=== PATIENT | female | born 1930 | race Caucasian/White ===

== ENCOUNTER → 2016-08-23 | Day surgery (SDC) | payer OTHER ==
[~2016-08-23] VITALS: Ht 167.6 cm; Wt 72.6 kg
[~2016-08-23] MED LIST: ALENDRONATE SOD70 M2 PO; ALLOPURINOL300 M1 PO; LIPITOR80 M1 PO; OMEPRAZOLE40 M1 PO; VITAMIN C500 M6 PO
--- NOTE | 2016-08-23 08:11 | Operative Report ---
Operative/Inv Procedure Report Surgery Date: 08/23/16 Name of Procedure: Cataract extraction lens implantation right eye Pre-Operative Diagnosis: Age-related cataract right eye 20/80 vision Post-Operative Diagnosis: Same Estimated Blood Loss: none Surgeon/Scratch Polisher: ALEXA MURILLO,KENY Oquendo Anesthesia: local monitored anesthesi Complications: None Operative/Procedure Note Note: The patient was brought to the operating room standard monitoring equipment was attached the patient was prepped and draped in the usual fashion for intraocular surgery. A lid speculum was placed to retract the lids. The case was begun by making 2 partial-thickness corneal relaxing incisions at 13. A temporal incision with a 2.4 mm keratome. The eye was stabilized with a Stephens ring during this incision. 1 mL of non-preserved lidocaine was introduced into the anterior chamber to provide anesthesia. The anterior chamber was then filled and deepened with viscoelastic. A curvilinear capsulorrhexis was achieved using a 30-gauge needle and is a cystotome and capsulorrhexis was finished using a Utrata forceps. A second or paracentesis incision was made temporally with a 1 mm MVR blade. The lens was then hydrodissected with balanced salt solution and found to be rotatable. The lens was emulsified using phacoemulsification and a modified four-quadrant cracking technique. The residual cortical material was removed using automated irrigation and aspiration and as much of the anterior capsular rim was cleaned as well as possible. The posterior capsule was cleaned first with the automated machine on a low setting and then manually with a Tin squeegee. The capsular bag was deepened with viscoelastic. The lens a Akreos AO 60 19.5 Diopter placed into the bag under direct visualization and rotated so that the haptics were at 12 and 6:00. Viscoelastic was then removed from the eye by flushing it out and then by automated irrigation and aspiration. The eye was pressurized to a normal tone. 1/10 of a cc of vancomycin solution was introduced into the anterior chamber to provide antibiotic prophylaxis. The wounds were sealed by hydrating the stroma adjacent to them and the eye was left at a proper tone after the wounds were checked and found not to be leaking. The lid speculum was removed from the orbit. Antibiotic and steroid drops were placed on the eye and then the eye was shielded. Monitoring equipment was removed from the patient and the patient was removed from the operative suite to the holding area. The patient tolerated the procedure well and will be seen in the office tomorrow.
== END ==
LOC: STS 04:38
DX: H25.9 Unspecified age-related cataract (principal); I10 Essential (primary) hypertension; M19.90 Unspecified osteoarthritis, unspecified site
CPT/HCPCS: J2250; V2632

== ENCOUNTER → 2016-10-05 | Day surgery (SDC) | payer OTHER ==
[~2016-10-05] VITALS: Ht 167.6 cm; Wt 72.6 kg
--- NOTE | 2016-10-05 08:04 | Operative Report ---
Operative/Inv Procedure Report Surgery Date: 10/05/16 Name of Procedure: Cataract extraction lens implantation left eye Pre-Operative Diagnosis: Age-related cataract left eye 20/70 vision Post-Operative Diagnosis: Same Estimated Blood Loss: none Surgeon/Farm Technician: ALEXA MURILLO,KENY Oquendo Anesthesia: local monitored anesthesi Complications: None Operative/Procedure Note Note: The patient was brought to the operating room standard monitoring equipment was attached the patient was prepped and draped in the usual fashion for intraocular surgery. A lid speculum was placed to retract the lids. The case was begun by making 2 partial-thickness corneal relaxing incisions at 170. A temporal incision with a 2.4 mm keratome. The eye was stabilized with a Stephens ring during this incision. 1 mL of non-preserved lidocaine was introduced into the anterior chamber to provide anesthesia. The anterior chamber was then filled and deepened with viscoelastic. A curvilinear capsulorrhexis was achieved using a 30-gauge needle and is a cystotome and capsulorrhexis was finished using a Utrata forceps. A second or paracentesis incision was made temporally with a 1 mm MVR blade. The lens was then hydrodissected with balanced salt solution and found to be rotatable. The lens was emulsified using phacoemulsification and a modified four-quadrant cracking technique. The residual cortical material was removed using automated irrigation and aspiration and as much of the anterior capsular rim was cleaned as well as possible. The posterior capsule was cleaned first with the automated machine on a low setting and then manually with a Tin squeegee. The capsular bag was deepened with viscoelastic. The lens a Akreos AO60 20.5 Diopter placed into the bag under direct visualization and rotated so that the haptics were at 12 and 6:00. Viscoelastic was then removed from the eye by flushing it out and then by automated irrigation and aspiration. The eye was pressurized to a normal tone. 1/10 of a cc of vancomycin solution was introduced into the anterior chamber to provide antibiotic prophylaxis. The wounds were sealed by hydrating the stroma adjacent to them and the eye was left at a proper tone after the wounds were checked and found not to be leaking. The lid speculum was removed from the orbit. Antibiotic and steroid drops were placed on the eye and then the eye was shielded. Monitoring equipment was removed from the patient and the patient was removed from the operative suite to the holding area. The patient tolerated the procedure well and will be seen in the office tomorrow.
== END ==
LOC: STS 02:37
DX: H25.9 Unspecified age-related cataract (principal); I10 Essential (primary) hypertension; K21.9 Gastro-esophageal reflux disease without esophagitis
CPT/HCPCS: J2250; V2632

== ENCOUNTER 2018-03-13 17:35 | Inpatient (IN) | payer OTHER ==
[~2018-03-13] VITALS: Ht 167.6 cm; Wt 59.9 kg
[~2018-03-13 17:35] MED LIST changes: +FISH OIL 1,0001 EACH PO; +FLAX OIL1000 M1 PO; +LISINOPRIL10 M1 PO; +OMEPRAZOLE20 M2 PO; -OMEPRAZOLE40 M1 PO; +OS-CAL 500+D31 EAC1 PO; +VITAMIN B-121000 MC3 PO; +VITAMIN D1000 UNIT PO
--- NOTE | 2018-03-13 18:30 | ED THROAT/DENTAL COMPLAINT ---
History of Present Illness General Chief Complaint: General Adult Stated Complaint: THROAT SWELLING Source: patient Exam Limitations: clinical condition, poor historian Vital Signs & Intake/Output Vital Signs & Intake/Output Vital Signs Date Time Temp Pulse Resp B/P B/P Pulse O2 O2 Flow FiO2 Mean Ox Delivery Rate 03/14 1414 97.0 79 18 100/58 95 Room Air 03/14 0620 97.8 71 18 136/60 97 Room Air 03/14 0042 97.9 78 18 154/68 97 Room Air 03/14 0002 98.3 84 18 175/75 96 Room Air 03/13 2129 98.2 92 18 151/70 100 Room Air 03/13 1933 97.9 76 18 164/70 100 Room Air ED Intake and Output 03/14 0000 03/13 1200 Intake Total Output Total Balance Patient 139 lb Weight Weight Reported by Patient Measurement Method Allergies Coded Allergies: Penicillins (Intermediate, UNKNOWN 03/22/17) Reconcile Medications Alendronate Sodium 70 MG TABLET 1 TAB PO QSUN OSTEOPOROSIS (Reported) in the morning, at least 30 minutes before the first food, beverage, or medication of the day Allopurinol 300 MG TABLET 1 TAB PO DAILY UNKNOWN (Reported) Ascorbate Calcium (Vitamin C) 500 MG TABLET 1 TAB PO DAILY SUPPLEMENT ( Reported) Atorvastatin Calcium (Lipitor) 80 MG TABLET 1 TAB PO DAILY CHOLESTEROL ( Reported) Calcium Carbonate/Vitamin D3 (Os-Lavelle 500+D3 Caplet) 500 MG-200 TABLET 1 TAB PO DAILY SUPLLEMENT (Reported) Cholecalciferol (Vitamin D3) (Vitamin D) 1,000 UNIT TABLET 1 TAB PO DAILY VITAMIN SUPPORT (Reported) Cyanocobalamin (Vitamin B-12) 1,000 MCG TABLET 1 TAB PO DAILY VITAMIN SUPPORT (Reported) Flaxseed Oil (Flax Oil) 1,000 MG CAPSULE 1 CAP PO DAILY SUPPLEMENT (Reported) Lisinopril 10 MG TABLET 1 TAB PO DAILY HEART (Reported) Cheney-3 Fatty Acids/Fish Oil (Fish Oil 1,000 MG Capsule) 340 MG-1,000 MG CAPSULE 1 CAP PO DAILY SUPPLEMENT (Reported) Omeprazole 20 MG CAPSULE.DR 1 CAP PO DAILY ACID REFLUX (Reported) Triage Note: PT BIBA FROM HOME WITH C/O "THROAT SWELLING". PT REPORTS THAT SHE HAS HAD DISCOMFORT AND SWELLING TO HER THROAT SINCE THE LATER PART OF JANUARY. 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 PT'S NEIGHBOR SPOKE WITH MD TODAY OVER CONCERN FOR PT'S INABILITY TO SWALLOW WITH INABILITY TO DRINK OR EAT SINCE MONDAY. PT ARRIVES AWAKE, A&O x4. DENIES PAIN WITH ONLY COMPLAINT OF FEELING DRY R/T POOR PO INTAKE. HYPERTENSIVE ON ARRIVAL WITH OTHER VSS. PT STATES SHE WAS UNABLE TO SWALLOW MEDICATION THS AM. Triage Nurses Notes Reviewed? yes Onset: Gradual Duration: getting worse Timing: recent history Injury Environment: home Severity: severe Severity Numbers: 7 HPI: Patient is an 87-year-old female with a past medical history of hypertension hyperlipidemia GERD who presents emergency room with concerns of difficulty swallowing and decreased amounts of by mouth intake for an unknown period of time, history is limited due to patient being a poor historian in which patient is presents to the emergency room with a neighbor I PlaceD a phone call to her primary care doctor Dr. PIRES who states that for approximately 6 weeks patient has developed gradually worsening dysphonia in which initially there was concerns of a mechanical fall and trauma to the vocal cords were patient has followed up with ENT Dr. Umaña which evaluation of the larynx was unremarkable, PT did receive bilateral carotid ultrasound showing approximately 70% of obstruction with no complete obstruction concerns he advised patient to be given aspirin which she declines he also states that he may house call visit a few days ago and which he was going to order a CAT scan of the head and provide patient with a prescription of Mucinex spray Patient states that she is unable tolerate anything by mouth for the past few days and is concerned of dehydration Patient denies any fever chills headache blurred vision sore throat year pain chest pain arm pain jaw pain with swelling tongue swelling or extremity weakness (Ole Garrido) Past History Medical History Any Pertinent Medical History? see below for history Cardiovascular: hypertension, hyperlipidemia Gastrointestinal: GERD Musculoskeletal: gout, osteoporosis Surgical History Surgical History: cataract removal Psychosocial History What is your primary language Telugu Family History Hx Contributory? No (Ole Garrido) Review of Systems Review of Systems Constitutional: Reports: no symptoms. EENTM: Reports: see HPI. Respiratory: Reports: no symptoms. Cardiovascular: Reports: no symptoms. GI: Reports: no symptoms. Genitourinary: Reports: no symptoms. Musculoskeletal: Reports: no symptoms. Skin: Reports: no symptoms. Neurological/Psychological: Reports: no symptoms. Hematologic/Endocrine: Reports: no symptoms. Immunologic/Allergic: Reports: no symptoms. All Other Systems: Reviewed and Negative (Ole Garrido) Physical Exam Physical Exam General Appearance: no apparent distress, alert, comfortable Head: atraumatic Eyes: Bilateral: normal appearance, PERRL, EOMI. Ears: Bilateral: Tympanic normal. Nose: normal inspection Mouth/Throat: normal mouth inspection, pharynx normal Neck: normal inspection, supple Cardiovascular/Respiratory: no respiratory distress Neurologic/Psych: awake, alert, oriented x 3, engineer internship II-XII nml as tested Skin: intact, normal color, warm/dry Comments: Gag reflex intact patient was able to swallow by mouth 3 ounces of water with no emesis however patient has significant dysphagia Bilateral upper extremity normal inspection nontender patient has difficulty lifting her right arm (she states that she has old injuries to the right shoulder with no new mechanism or trauma) Bilateral lower extremity patient able to perform straight leg raise Bilateral upper extremity and lower extremity dermatomes intact radial pulse +2 Core Measures ACS in differential dx? No Sepsis Present: No Sepsis Focused Exam Completed? No (Ole Garrido) Progress Differential Diagnosis: carious tooth, epiglottitis, Ludwigs angina, meningitis, odontogenic abscess, alejandro-tonsillar abscess, pharyngeal for. body, stomatitis/ gingivitis, strep pharyngitis, tooth fracture Plan of Care: Orders Procedure Date/time Status CBC WITHOUT DIFFERENTIAL 03/15 06 Active BASIC ELECTROLYTES PLUS BUN&CR 03/15 06 Active Regular Diet 03/14 L Active Nothing by Mouth 03/14 B Complete Change service to 03/14 0723 Active HEPATIC FUNCTION PANEL 03/14 06 Complete BASIC ELECTROLYTES PLUS BUN&CR 03/14 06 Complete Pathway - chart 03/14 0442 Active Code Status 03/14 0148 Active Vital Signs 03/14 010 Active Teach/Educate 03/14 010 Active Pain Treatment and Response 03/14 010 Active Nutritional Intake, Monitor 03/14 010 Active Isolation 03/14 0100 Active Intake & Output 03/14 010 Active Patient Care Conference 03/14 010 Active Activity/Ambulation 03/14 010 Active PT Evaluate & Treat 03/14 0021 Active Pathway - chart 03/14 0021 Active House Staff 03/14 0021 Active NUTRITIONAL CONSULT 03/14 0021 Active SWALLOW EVALUATION 03/14 UNK Active SWALLOW GOAL STATUS 03/14 UNK Complete SWALLOW CURRENT STATUS 03/14 UNK Complete Evaluation, Swallowing 03/14 UNK Complete Theraputic Activities 15 Min 03/14 UNK Complete MOBILITY GOAL STATUS 03/14 UNK Complete MOBILITY CURRENT STATUS 03/14 UNK Complete PT EVAL LOW COMPLEX 20 MIN 03/14 UNK Complete Occupational Tx Eval & Treat 03/14 UNK Active VTE Mechanical Prophylaxis 03/14 UNK Active Activity/Ambulation 03/14 UNK Active Intake & Output 03/13 2356 Active Patient Data 03/13 2247 Active OXYGEN SETUP (GEN) 03/13 2228 Active Saline Lock 03/[address] in observation 03/13 2228 Active Vital Signs 03/13 2228 Active Activity/Ambulation 03/13 2228 Complete Code Status 03/13 2228 Complete Current Medications Sig/Laisha Start time Last Medication Dose Stop Time Status Admin Enoxaparin Sodium 40 MG DAILY 03/14 0900 AC 03/14 (Lovenox) 0829 Acetaminophen 650 MG Q6 03/14 0600 CAN (Tylenol) Acetaminophen 1,000 MG Q6P PRN 03/14 0445 AC (Ofirmev) N/A 1 UNIT (No Carrier) Laboratory Tests 03/14/18 0821: Anion Gap 12, Estimated GFR > 60, BUN/Creatinine Ratio 18.3, Total Bilirubin 0.5 , Direct Bilirubin 0.2, AST 97 H, ALT 44, Alkaline Phosphatase 59, Total Protein 6.2 L, Albumin 3.5 03/13/18 2214: Lactic Acid Cancelled Differential diagnoses include CVA TIA Patient on initial presentation is resting currently NIH stroke scale is low Symptoms have been presenting for over a month that are gradually worsening Patient had considerable difficulty swallowing 3 ounces of water in which there is no acute neurovascular compromise noted from the CT angiogram Patient was unsafe to return home due to her clinical presentation Diagnostic Imaging: Viewed by Me: CT Scan. Radiology Impression: SEE COMMENTS Comments: PATIENT: YUE VALERIO PRESENT AGE: 87 PATIENT ACCOUNT NO: [id number] : 29 LOCATION: [facility] ORDERING PHYSICIAN: Ole HOWARD SERVICE DATE: 03/13/18-2215 EXAM TYPE: RAD - XRY-CHEST XRAY, TWO VIEWS EXAMINATION: XR CHEST CLINICAL INFORMATION: Inability to swallow. Choking. COMPARISON: None TECHNIQUE: 2 views of the chest were obtained. FINDINGS: Lungs are clear. No pulmonary vascular congestion. There is no pleural effusion. The heart size is normal. The cardiac and mediastinal contours are normal. There are calcifications of the thoracic aorta. There are multilevel degenerative changes of dorsal spine. Old healed fracture of the proximal shaft of the left humerus partially visualized. Bowel loops are present under the right left diaphragm. No free air under the diaphragms. IMPRESSION: No acute abnormality of chest. DICTATED BY: Jose Daniel Avila MD DATE/TIME DICTATED:03/13/18 / PATIENT: YUE VALERIO PRESENT AGE: 87 PATIENT ACCOUNT NO: [id number] : 29 LOCATION: [facility] ORDERING PHYSICIAN: Ole HOWARD SERVICE DATE: 03/13/18 EXAM TYPE: CAT - CT HEAD ANGIOGRAM; CT NECK ANGIOGRAM EXAMINATION: CT ANGIOGRAM NECK WITH CONTRAST CT ANGIOGRAM BRAIN WITH CONTRAST CLINICAL INFORMATION: Dysarthria COMPARISON: Carotid ultrasound from 02/26/2018. CT neck from 02/07/2018. TECHNIQUE: Test bolus sequences followed by intravenous administration 90 mL of Optiray 320. Helical imaging was performed in the axial plane from the thoracic inlet to the skull vertex. Delayed postcontrast imaging of the head was also performed. The data was processed at the ct mri technologist workstation for generation of MIP sequences. Angled MIPs and volume rendered reformatted images were also generated at an offline 3D workstation. Stenoses are assessed in accordance with NASCET criteria unless otherwise indicated. DLP: 1934 mGy-cm FINDINGS: Nonvascular: There is no hemorrhage, edema, mass effect, hydrocephalus, extra-axial collection, or shift of the normally midline structures. No evolving territorial infarct. There is moderate generalized prominence of the ventricles, sulci, and extra-axial CSF spaces. There is mild hypoattenuation in the bihemispheric white matter compatible with chronic microangiopathy. No abnormal intracranial enhancement is visualized. There are dependent changes in the lung apices as well as nodular biapical pleuroparenchymal scarring. No upper mediastinal adenopathy is convincingly evident. There is a 4 mm right thyroid nodule. The imaged pharyngeal and laryngeal contours appear grossly unremarkable. No abnormalities of the oral cavity are definitively visualized. No evidence of sialadenitis involving the parotid or submandibular glands. No cervical adenopathy. There have been bilateral ocular lens extractions. No acute osseous abnormalities. There are arachnoid granulations in the occipital bone incidentally. The imaged paranasal sinuses, nasal cavity, mastoid air cells and middle ear cavities are clear. Multilevel cervical spondylosis worst at C4-C5 and C5-C6. No acute osseous abnormalities are evident. Vascular: The aortic arch is unfolded and calcified but normal in caliber. There is conventional branching of the great vessels without significant ostial stenosis. There is calcification at the origin of the left subclavian artery which is not hemodynamically significant. The proximal subclavian arteries both appear free of hemodynamically significant stenosis. The origin of the right common carotid artery is unremarkable. The origin of both vertebral arteries appear unremarkable. The right common carotid artery appears normal in caliber. There is calcified and noncalcified atheroma at the right carotid bulb. There is calcified and noncalcified atheroma involving the origin and proximal right internal carotid artery, narrowing the lumen down to 1.9 mm, distally 3.9 mm, for an approximately 51% stenosis. There is mild poststenotic dilatation. More distally within the mid to distal cervical internal carotid artery there is a beaded appearance with mild luminal narrowing. The left common carotid artery appears fairly normal in caliber. There is calcified and noncalcified atheroma at the left carotid bulb with mild luminal narrowing. There is calcified and noncalcified atheroma extending into the origin and proximal left common carotid artery with luminal narrowing down to approximately 1.9 mm, distally the vessel measures approximately 3.4 mm, for a 40-45 % stenosis. There is a slightly beaded appearance of the mid to distal cervical internal carotid artery. The dominant right vertebral artery appears unremarkable in its cervical course. The diminutive left vertebral artery appears unremarkable in its cervical course. The distal right internal carotid artery demonstrates tortuosity and calcification in its cavernous segment. No high-grade stenosis. The right middle cerebral artery appears normal in caliber and arborization. The right anterior cerebral artery appears normal in caliber and arborization. The anterior communicating artery appears unremarkable. The distal left internal carotid artery is tortuous and calcified in its cavernous segment. There is some venous contamination which limits assessment but there is suspected to be a medially projecting 3 mm saccular outpouching at the cavernous level (series 3 image [id number]). There is no high-grade stenosis. The left MCA demonstrates mild irregularity without high-grade stenosis or occlusion visualized. The intradural vertebral arteries, basilar artery, and vertebrobasilar branches appear unremarkable. No aneurysm or vascular malformation. The major dural venous sinuses, deep and cortical veins opacify normally. There are some scattered tortuous venous collaterals seen within the posterior soft tissues of the neck, which may be due to compression of the jugular veins between the lateral masses of C1 and the styloid processes, also previously noted. IMPRESSION: 1. No acute intracranial abnormality. No abnormal intracranial enhancement. 2. An approximately 50-55% stenosis of the proximal right internal carotid artery due to calcified and noncalcified atheroma with mild poststenotic dilatation. An approximately 40-45% stenosis involving the proximal left internal carotid artery due to calcified and noncalcified atheroma. 3. There is an irregular beaded appearance of the mid to distal cervical internal carotid arteries bilaterally suggesting fibromuscular dysplasia. 4. 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 No high-grade stenosis or occlusion in the intracranial arteries. 5. Fairly high-grade narrowing of the internal jugular veins between the lateral masses of C1 and styloid processes with collateral venous circulation within the upper neck. DICTATED BY: Diane Mao MD DATE/TIME DICTATED:03/13/182137 CNC MILL PROGRAMMER:MARY DATE/TIME TRANSCRIBED:03/13/18 / (Ole Garrido) Departure Departure Disposition: STILL A PATIENT Condition: Stable Clinical Impression Primary Impression: Dysphagia Secondary Impressions: Dysphonia, Inability to swallow Referrals: Jamey Pires MD (PCP/Family) Departure Forms: Customer Survey General Discharge Information Observation Note Spoke With: Tisha Alatorre MD Physician Advisor Notified: MALI MCKENZIE MD Place Patient In: Non-ED OBS Care Area Rationale for Observation: My rational for observation is as follows [patient requires frequent vital sign checks, ENT consultation speech therapy consultation and vascular consultation and which currently patient is unsafe to be discharged due to her significant dysphagia]. (Ole Garrido) PA/SHOCHET Co-Sign Statement Statement: ED Attending supervision documentation- x I saw and evaluated the patient. I have also reviewed all the pertinent lab results and diagnostic results. I agree with the findings and the plan of care as documented in the PA's/SHOCHET's documentation. Dysphagia, dysphonia, unable to eat or drink [] I have reviewed the ED Record and agree with the PA's/SHOCHET's documentation. [] Additions or exceptions (if any) to the PAs/SHOCHET's note and plan are summarized below: [] (Dinora MURILLO,Fausto)
[2018-03-13 19:31] LABS: ABSOLUTE BASOPHIL COUNT 0.1 /CUMM (0.0-0.2); ABSOLUTE EOSINOPHIL COUNT 0 /CUMM (0.0-0.7); ABSOLUTE GRANULOCYTE CT 3.2 /CUMM (1.4-6.5); ABSOLUTE LYMPH COUNT 1.4 /CUMM (1.2-3.4); ABSOLUTE MONOCYTE COUNT 0.4 /CUMM (0.10-0.60); BASOPHIL % 1.1 % (0.0-2.0); EOSINOPHIL % 0.6 % (0-5); GRANULOCYTE % 62.7 % (42.2-75.2); MEAN CORPUSCULAR HGB 31.3 PG (27.0-31.0); MEAN CORPUSCULAR HGB CONC 32.8 G/DL (33.0-37.0); MEAN CORPUSCULAR VOLUME 95.5 FL (81.0-99.0); PLATELET COUNT 198 /CUMM (130-400); RED BLOOD CELL CT 3.77 /CUMM (4.20-5.40); WHITE BLOOD CELL COUNT 5.1 /CUMM (4.8-10.8)
[2018-03-13 19:45] LABS: PT 11.7 SEC (9.4-12.5)
--- NOTE | 2018-03-13 22:01 | CT SCAN REPORT ---
EXAMINATION: CT ANGIOGRAM NECK WITH CONTRAST CT ANGIOGRAM BRAIN WITH CONTRAST CLINICAL INFORMATION: Dysarthria COMPARISON: Carotid ultrasound from 02/26/2018. CT neck from 02/07/2018. TECHNIQUE: Test bolus sequences followed by intravenous administration 90 mL of Optiray 320. Helical imaging was performed in the axial plane from the thoracic inlet to the skull vertex. Delayed postcontrast imaging of the head was also performed. The data was processed at the echocardiography technologist workstation for generation of MIP sequences. Angled MIPs and volume rendered reformatted images were also generated at an offline 3D workstation. Stenoses are assessed in accordance with NASCET criteria unless otherwise indicated. DLP: 1934 mGy-cm FINDINGS: Nonvascular: There is no hemorrhage, edema, mass effect, hydrocephalus, extra-axial collection, or shift of the normally midline structures. No evolving territorial infarct. There is moderate generalized prominence of the ventricles, sulci, and extra-axial CSF spaces. There is mild hypoattenuation in the bihemispheric white matter compatible with chronic microangiopathy. No abnormal intracranial enhancement is visualized. There are dependent changes in the lung apices as well as nodular biapical pleuroparenchymal scarring. No upper mediastinal adenopathy is convincingly evident. There is a 4 mm right thyroid nodule. The imaged pharyngeal and laryngeal contours appear grossly unremarkable. No abnormalities of the oral cavity are definitively visualized. No evidence of sialadenitis involving the parotid or submandibular glands. No cervical adenopathy. There have been bilateral ocular lens extractions. No acute osseous abnormalities. There are arachnoid granulations in the occipital bone incidentally. The imaged paranasal sinuses, nasal cavity, mastoid air cells and middle ear cavities are clear. Multilevel cervical spondylosis worst at C4-C5 and C5-C6. No acute osseous abnormalities are evident. Vascular: The aortic arch is unfolded and calcified but normal in caliber. There is conventional branching of the great vessels without significant ostial stenosis. There is calcification at the origin of the left subclavian artery which is not hemodynamically significant. The proximal subclavian arteries both appear free of hemodynamically significant stenosis. The origin of the right common carotid artery is unremarkable. The origin of both vertebral arteries appear unremarkable. The right common carotid artery appears normal in caliber. There is calcified and noncalcified atheroma at the right carotid bulb. There is calcified and noncalcified atheroma involving the origin and proximal right internal carotid artery, narrowing the lumen down to 1.9 mm, distally 3.9 mm, for an approximately 51% stenosis. There is mild poststenotic dilatation. More distally within the mid to distal cervical internal carotid artery there is a beaded appearance with mild luminal narrowing. The left common carotid artery appears fairly normal in caliber. There is calcified and noncalcified atheroma at the left carotid bulb with mild luminal narrowing. There is calcified and noncalcified atheroma extending into the origin and proximal left common carotid artery with luminal narrowing down to approximately 1.9 mm, distally the vessel measures approximately 3.4 mm, for a 40-45 % stenosis. There is a slightly beaded appearance of the mid to distal cervical internal carotid artery. The dominant right vertebral artery appears unremarkable in its cervical course. The diminutive left vertebral artery appears unremarkable in its cervical course. The distal right internal carotid artery demonstrates tortuosity and calcification in its cavernous segment. No high-grade stenosis. The right middle cerebral artery appears normal in caliber and arborization. The right anterior cerebral artery appears normal in caliber and arborization. The anterior communicating artery appears unremarkable. The distal left internal carotid artery is tortuous and calcified in its cavernous segment. There is some venous contamination which limits assessment but there is suspected to be a medially projecting 3 mm saccular outpouching at the cavernous level (series 3 image 418). There is no high-grade stenosis. The left MCA demonstrates mild irregularity without high-grade stenosis or occlusion visualized. The intradural vertebral arteries, basilar artery, and vertebrobasilar branches appear unremarkable. No aneurysm or vascular malformation. The major dural venous sinuses, deep and cortical veins opacify normally. There are some scattered tortuous venous collaterals seen within the posterior soft tissues of the neck, which may be due to compression of the jugular veins between the lateral masses of C1 and the styloid processes, also previously noted. IMPRESSION: 1. No acute intracranial abnormality. No abnormal intracranial enhancement. 2. An approximately 50-55% stenosis of the proximal right internal carotid artery due to calcified and noncalcified atheroma with mild poststenotic dilatation. An approximately 40-45% stenosis involving the proximal left internal carotid artery due to calcified and noncalcified atheroma. 3. There is an irregular beaded appearance of the mid to distal cervical internal carotid arteries bilaterally suggesting fibromuscular dysplasia. 4. 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 No high-grade stenosis or occlusion in the intracranial arteries. 5. Fairly high-grade narrowing of the internal jugular veins between the lateral masses of C1 and styloid processes with collateral venous circulation within the upper neck.
--- NOTE | 2018-03-13 22:42 | History & Physical ---
Janeen Ac 03/13/18 2241: General Information and HPI MD Statement: I have seen and personally examined YUE VALERIO and documented this H&P. The patient is a 87 year old F who presented with a patient stated chief complaint of []. Source of Information: patient Exam Limitations: patient's age, physical impairment History of Present Illness: 87 yo woman with PMH of hypertension, hyperlipidemia and gout was brought in to the ED by her neighbour as she had not been able to eat or drink anything for the past 2 days. The patient was alone at the time of interview and was making a significant effort to talk. According to her, her problems started at the end of last month when she apparently had a stroke. She developed dysphonia and hoarseness of her voice along with weakness in her legs. Dr. Martin, her PCP was contacted by the PA in the ED and according to him the dysphonia started 6 weeks ago after the patient had a fall. He referred her to , an ENT who did a laryngoscopy on her which showed no acute changes. The patient is tearful during the interview and reports that she has not been able to eat or drink anything for the past 2 days and has been choking if she tries to do so. She lives alone, admits that she has not been eating well and has had multiple falls in the past mainly because of her legs giving way. She denies chest pain, SOB, nausea, vomiting, dizziness, vision problems, any bowel or bladder trouble. Allergies/Medications Allergies: Coded Allergies: Penicillins (Intermediate, UNKNOWN 03/22/17) Home Med list Alendronate Sodium 70 MG TABLET 1 TAB PO QSUN OSTEOPOROSIS (Reported) in the morning, at least 30 minutes before the first food, beverage, or medication of the day Allopurinol 300 MG TABLET 1 TAB PO DAILY UNKNOWN (Reported) Ascorbate Calcium (Vitamin C) 500 MG TABLET 1 TAB PO DAILY SUPPLEMENT ( Reported) Atorvastatin Calcium (Lipitor) 80 MG TABLET 1 TAB PO DAILY CHOLESTEROL ( Reported) Calcium Carbonate/Vitamin D3 (Os-[place] 500+D3 Caplet) 500 MG-200 TABLET 1 TAB PO DAILY SUPLLEMENT (Reported) Cholecalciferol (Vitamin D3) (Vitamin D) 1,000 UNIT TABLET 1 TAB PO DAILY VITAMIN SUPPORT (Reported) Cyanocobalamin (Vitamin B-12) 1,000 MCG TABLET 1 TAB PO DAILY VITAMIN SUPPORT (Reported) Flaxseed Oil (Flax Oil) 1,000 MG CAPSULE 1 CAP PO DAILY SUPPLEMENT (Reported) Lisinopril 10 MG TABLET 1 TAB PO DAILY HEART (Reported) [place]-3 Fatty Acids/Fish Oil (Fish Oil 1,000 MG Capsule) 340 MG-1,000 MG CAPSULE 1 CAP PO DAILY SUPPLEMENT (Reported) Omeprazole 20 MG CAPSULE. 1 CAP PO DAILY ACID REFLUX (Reported) Observation Initial Note - I have personally examined YUE VALERIO on 03/14/18 at 0538. The disposition of YUE VALERIO is uncertain at this time and before a determination can be made, she requires a period of observation for the following reasons: 1. dysphagia 2. failure to thrive Past History Travel History Traveled to [place] past 21 day No Medical History Neurological: CVA Cardiovascular: hypertension, hyperlipidemia Gastrointestinal: GERD Musculoskeletal: gout, osteoporosis Surgical History Surgical History: cataract removal Past Family/Social History Psychosocial History Primary Language: [place] ETOH Use: denies use Review of Systems Review of Systems Constitutional: Denies: chills, diaphoresis, fever, malaise, unexplained weight loss. EENTM: Reports: hearing changes. Denies: double vision, visual changes. Cardiovascular: Denies: chest pain, edema, palpitations. Respiratory: Denies: cough, short of breath. GI: Denies: abdominal pain, bloating, constipation, diarrhea, bowel incontinence, nausea. Genitourinary: Reports: urgency. Denies: discharge, dysuria, frequency, hesitation. Musculoskeletal: Reports: joint pain. Skin: Reports: no symptoms. Neurological/Psychological: Reports: weakness. Hematologic/Endocrine: Reports: no symptoms. Exam & Diagnostic Data Last 24 Hrs of Vital Signs/I&O Vital Signs Date Time Temp Pulse Resp B/P B/P Pulse O2 O2 Flow FiO2 Mean Ox Delivery Rate 03/14 0042 97.9 78 18 154/68 97 Room Air 03/14 0002 98.3 84 18 175/75 96 Room Air 03/13 2129 98.2 92 18 151/70 100 Room Air 03/13 1933 97.9 76 18 164/70 100 Room Air 03/13 1757 Room Air 03/13 1742 98.3 98 20 170/80 98 Room Air Intake & Output 03/14 0800 03/14 0000 03/13 1600 Intake Total Output Total 150 Balance -150 Output, Urine 150 Patient 139 lb 139 lb Weight Weight Reported by Patient Measurement Method Physical Exam General Appearance Alert, Oriented X3, Cooperative, Mild Distress Skin bruises on her arms and elbows apparently form her recurent falls Skin Temp/Moisture Exam: Warm/Dry Sepsis Skin Exam (color): Normal for Ethnicity HEENT Atraumatic, PERRLA Neck Supple Cardiovascular Regular Rate, Normal S2, systolic murmur heard in the aortic area Lungs breath sounds diminished B/L upper chest Abdomen Normal Bowel Sounds, Soft, No Tenderness Neurological Strength 4/5 B/L Extremities Normal Pulses Assessment/Plan Assessment: This is an 87 yo Female who was brought in by her neighbour with complaints of dysphagia and choking on both solids and liquids for the past 2 days. She gives a history of having suffered a CVA last month but it could not been verified. On exmaination, the patient was tearful and took a lot of effort to verbalise her concerns. She nearly aspirated when she was given water to drink in the ED. CT scan head and neck did not show any acute intracranial abnormaslity. It does show internal carotid artery narrowing alongwith evidence of fibromuscular dysphagia. 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 Plan: 1. Place under observation on the GM floors. 2. Swallow evaluation 3. NPO to avoid chokig/ aspiration 4. Speech therapy and PT 5. VAscular consult 6. ENT consult DVT prophylaxis: Lovenox Code status: DNR/DNI As Ranked By This Provider Problem List: 1. Dysphonia 2. Dysphagia 3. Inability to swallow 4. Frequent falls 5. Choking Core Measures/Misc (05/07) Acute Coronary Syndrome ACS Diagnosis: No Congestive Heart Failure Congestive Heart Failure Diagnosis No Cerebrovascular Accident CVA/TIA Diagnosis: No VTE (View Protocol) VTE Risk Factors Age>40 No Mechanical VTE Prophylaxis d/t N/A MechProphylax Ordered No VTE Pharm Prophylaxis d/t NA PharmProphylax ordered Sepsis (View protocol) Sepsis Present: No If YES complete Sepsis Event Note If YES complete Sepsis Event Note Braulio Montalvo 03/14/18 0153: Core Measures/Misc (05/07) Sepsis (View protocol) If YES complete Sepsis Event Note If YES complete Sepsis Event Note Resident Review Statement Resident Statement: examined this patient, discussed with risk management internship, agreed with risk management internship Other Findings: 87 woman, from home past medical history significant for osteoporosis, gout, HTN , HLD presenting with dysphagia since the past 6 weeks with dysphonia which has progressed the last 2 days. Per patient she had a fall a month ago and since been having trouble articulating her words and having dysphonia. She was evaluated by her PCP Dr. Martin who thought it was secondary to trauma to her with vocal cords due to her fall and she was evaluated by Dr. Umaña of ENT who performed laryngoscopy that was found to be normal. Apparently a carotid ultrasound was also done by PCP and was reported to have 70% stenosis of 1 of her carotid arteries and he wanted to start her on aspirin however patient declined this. Patient did give us a history that she apparently had a stroke a month ago however her PCP did not mention this to the ED PA and there is no mention of it in EMR. Since the last 2 days she has been unable to have any kind of p.o. intake as she if chokes when she tries liquids or solids and even her pills. She was given water in the ED and nearly aspirated. She also also had multiple falls which she feels is mostly her legs giving way and overall generalized weakness. Denies headache, vision changes, numbness, motor dysfunction, paresthesia, ataxia, chest pain, SOB, diarrhea, dysuria, abdominal pain. Vitals in ED significant for hypertension 154/68. Examination significant for dry mucous membranes, no lateralizing neurological deficits, she is able to move her tongue in all directions. RS significant for bilaterally decreased breath sounds specifically in upper lung area. CVS S1-S2 short systolic murmur. Labs CBC BEP unremarkable, chest x-ray shows old calcification of thoracic aorta. CTA head and neck: IMPRESSION: 1. No acute intracranial abnormality. No abnormal intracranial enhancement. 2. An approximately 50-55% stenosis of the proximal right internal carotid artery due to calcified and noncalcified atheroma with mild poststenotic dilatation. An approximately 40-45% stenosis involving the proximal left internal carotid artery due to calcified and noncalcified atheroma. 3. There is an irregular beaded appearance of the mid to distal cervical internal carotid arteries bilaterally suggesting fibromuscular dysplasia. 4. 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 No high-grade stenosis or occlusion in the intracranial arteries. 5. Fairly high-grade narrowing of the internal jugular veins between the lateral masses of C1 and styloid processes with collateral venous circulation within the upper neck. 1 dysphagia 2 failure to thrive 3. Right and left ICA stenosis Plan Place as observation general medicine, vitals per protocol Keep n.p.o. for swallow/speech evaluation, patient will require modified barium swallow ENT and vascular consults MRI head to assess for stroke PT to evaluate and treat NPO with D5 1/2 NS for maintenance, hold all p.o. meds for now if her blood pressure continues to increase she will need IV as needed As she lives alone with no help and no relatives involved in her care, she will need to be assessed for safe discharge. DVT PPx subcu Lovenox DNR/DNI Tisha Alatorre MD 03/14/18 0223: Core Measures/Misc (05/07) Sepsis (View protocol) If YES complete Sepsis Event Note If YES complete Sepsis Event Note Attending MD Review Statement Attending Statement Attending MD Statement: examined this patient, discuss w/resident/PA/VOCATIONAL CHILDCARE TEACHER, agreed w/resident/PA/VOCATIONAL CHILDCARE TEACHER, reviewed EMR data (avail) Attending Assessment/Plan: 87F PMH HTN, HLD presenting with hoarseness of voice and dysphagia. Patient fell a few weeks ago and since then has had a hoarse voice, thought by Dr. Martin to be traumatic. Saw Dr. Umaña of ENT who performed laryngoscopy that was found to be normal. Patient reports having a stroke about a month ago but this is unclear, and no record of it here. Patient reports worsening of her hoarseness, and today is unable to swallow anything. She was given water in the ED and nearly aspirated. She also reports generalized weakness. She has no other complaints, and denies headache, vision changes, numbness, motor dysfunction, paresthesia, ataxia, chest pain, SOB, diarrhea, dysuria, abdominal pain. Her neurological exam is normal. CTA head and neck were done which show multiple areas of narrowing with evidence of fibromuscular dysplasia. No areas of infarct or bleed were noted. 1. Pharyngeal dysphagia 2. Hoarseness 3. Right and left ICA stenosis Plan - Observation in general medicine - ENT and vascular consults - MRI head - Speech therapy evaluation - D5 1/2 NS for maintenance - NPO - DVT PPx
--- NOTE | 2018-03-13 22:44 | RADIOLOGY REPORT ---
EXAMINATION: XR CHEST CLINICAL INFORMATION: Inability to swallow. Choking. COMPARISON: None TECHNIQUE: 2 views of the chest were obtained. FINDINGS: Lungs are clear. No pulmonary vascular congestion. There is no pleural effusion. The heart size is normal. The cardiac and mediastinal contours are normal. There are calcifications of the thoracic aorta. There are multilevel degenerative changes of dorsal spine. Old healed fracture of the proximal shaft of the left humerus partially visualized. Bowel loops are present under the right left diaphragm. No free air under the diaphragms. IMPRESSION: No acute abnormality of chest.
[2018-03-14 00:42] VITALS: BP 154/68
[2018-03-14 06:20] VITALS: BP 136/60
--- NOTE | 2018-03-14 07:06 | PN- Housestaff ---
Devante Salgado 03/14/18 0706: Subjective Follow-up For: difficulty swallowing and weakness Complaints: unable to swallow, x2 days Subjective: Patient seen and examined at the bedside. Patient was emotionally labile and tearful on interview. Upset that she can no longer feed herself and no longer eat. Asked for physicians help in figuring out what is wrong and solving this problem. Review of Systems Constitutional: Reports: see HPI, weakness. EENTM: Reports: no symptoms. Cardiovascular: Reports: no symptoms. Respiratory: Reports: no symptoms. Gastrointestinal: Reports: see HPI. Genitourinary: Reports: no symptoms. Musculoskeletal: Reports: no symptoms. Skin: Reports: no symptoms. Neurological/Psychological: Reports: no symptoms. Hematologic/Endocrine: Reports: no symptoms. Objective Last 24 Hrs of Vital Signs/I&O Vital Signs Date Time Temp Pulse Resp B/P B/P Pulse O2 O2 Flow FiO2 Mean Ox Delivery Rate 03/14 1414 97.0 79 18 100/58 95 Room Air 03/14 0620 97.8 71 18 136/60 97 Room Air 03/14 0042 97.9 78 18 154/68 97 Room Air 03/14 0002 98.3 84 18 175/75 96 Room Air 03/13 2129 98.2 92 18 151/70 100 Room Air 03/13 1933 97.9 76 18 164/70 100 Room Air 03/13 1757 Room Air 03/13 1742 98.3 98 20 170/80 98 Room Air Intake & Output 03/14 1600 03/14 0800 03/14 0000 Intake Total 780 0 Output Total 700 250 Balance 80 -250 Intake, IV 300 Intake, Oral 480 0 Number 1 1 Bowel Movements Output, Urine 700 250 Patient 139 lb 139 lb 139 lb Weight Weight Reported by Patient Measurement Method Physical Exam General Appearance: Alert, Oriented X3, Cooperative, Severe Distress, hoarse voice Skin: No Rashes, No Breakdown Skin Temp/Moisture Exam: Warm/Dry HEENT: Atraumatic, PERRLA, EOMI Neck: Supple, No JVD, No thryomegaly Lymphatic: Axillary nl, Cervical nl Cardiovascular: Regular Rate, Normal S1, Normal S2, No Murmurs Lungs: Clear to Auscultation, Normal Air Movement Abdomen: Normal Bowel Sounds, Soft, No Tenderness, No Hepatospenomegaly Neurological: Normal Gait, Strength at 5/5 X4 Ext, Normal Tone, Sensation Intact , hoarse voice Extremities: No Clubbing, No Cyanosis, No Edema Vascular: Normal Pulses, Pulses Symmetrical Current Medications: Current Medications Sig/Laisha Start time Last Medication Dose Route Stop Time Status Admin Acetaminophen 650 MG Q6 03/14 0600 CAN PO Acetaminophen 1,000 MG Q6P PRN 03/14 0445 AC N/A 1 UNIT IV Dextrose/Sodium 1,000 ML Q13H 03/14 0330 DC 03/14 Chloride IV 0414 Enoxaparin Sodium 40 MG DAILY 03/14 0900 AC 03/14 SC 0829 Sodium Chloride 1,000 ML .[id number] 03/14 0015 DC 03/14 IV 0137 Last 24 Hrs of Lab/Driss Results Last 24 Hrs of Labs/Mics: Laboratory Tests 03/14/18 0821: Anion Gap 12, Estimated GFR > 60, BUN/Creatinine Ratio 18.3, Total Bilirubin 0.5 , Direct Bilirubin 0.2, AST 97 H, ALT 44, Alkaline Phosphatase 59, Total Protein 6.2 L, Albumin 3.5 03/13/18 2214: Lactic Acid Cancelled 03/13/18 1915: Anion Gap 13, Estimated GFR > 60, BUN/Creatinine Ratio 18.8, Glucose 67, Lactic Acid 1.1, Calcium 9.9, Total Bilirubin 0.9, AST 128 H, ALT 45, Alkaline Phosphatase 52, Total Protein 7.0, Albumin 4.0, Globulin 3.0, Albumin/Globulin Ratio 1.3, PT 11.7, INR 1.07, CBC w Diff NO MAN DIFF REQ, RBC 3.77 L, MCV 95.5, MCH 31.3 H, MCHC 32.8 L, RDW 15.0 H, MPV 10.0, Gran % 62.7, Lymphocytes % 27.9, Monocytes % 7.7, Eosinophils % 0.6, Basophils % 1.1, Absolute Granulocytes 3.2, Absolute Lymphocytes 1.4, Absolute Monocytes 0.4, Absolute Eosinophils 0, Absolute Basophils 0.1 Orders Radiology Findings: Head MRI showed no evidence of acute intracranial pathology Assessment/Plan Assessment: Patient is an 87-year-old female past medical history of hypertension, hyperlipidemia, and gout presents to the ER with difficulty swallowing and weakness. Problem list/plan: Dysphagia speech pathology -MRI showed no evidence of acute stroke or other insult Chronic conditions DVT prophylaxis: Subcu heparin and ALPS Regular diet, pure and nectar consistency Patient is DNR/DNI Problem List: 1. Dysphagia 2. Dysphonia 3. Choking Pain Ratin Pain Location: none Pain Goal: Remain pain free Pain Plan: acetaminophen for pain prn Tomorrow's Labs & Rationales: cbc, bep Malou Deluca 03/14/18 1118: Attending MD Review Statement Attending Statement Attending MD Statement: examined this patient, discuss w/resident/PA/LAMP SHADE JOINER, agreed w/resident/PA/LAMP SHADE JOINER, discussed with family, reviewed EMR data (avail), discussed with nursing, discussed with case mgmt, reviewed images, amended to note Attending Assessment/Plan: 87F PMH HTN, HLD presenting with hoarseness of voice and dysphagia which is acute to subacute onset. Saw Dr. Umaña of ENT who performed laryngoscopy that was found to be normal. Patient reports worsening of her hoarseness, and today is unable to swallow anything. CTA head and neck s/o multiple areas of narrowing with evidence of fibromuscular dysplasia. Vitals stable. no complaints reported. Going for MRI head. 1. Oropharyngeal dysphagia subacute to acute onset r/o CVA 2. Hoarseness 3. Right and left ICA stenosis Plan - Observation in general medicine - F/ U ENT and vascular consults - MRI head F/U - Speech/swallow therapy evaluation - IVF, NPO - DVT PPx
--- NOTE | 2018-03-14 10:46 | RADIOLOGY REPORT ---
EXAMINATION: XR MODIFIED BARIUM SWALLOW CLINICAL INFORMATION: Dysphagia, choking. COMPARISON: None. TECHNIQUE: A modified barium swallow was performed with speech pathologist in attendance. Pur?e, honey thick, nectar thick, thin, and bread consistencies were given to the patient and the swallowing mechanism was observed fluoroscopically with several spot films taken using the last image hold feature. FLUOROSCOPY TIME: 2.33 minutes. FINDINGS: With all consistencies, the oropharyngeal phase of swallowing is disordered with difficulty in posterior bolus propagation. With thin liquids, silent penetration of contrast is seen with no laryngeal or nasopharyngeal aspiration seen. No penetration with the other consistencies is noted. With all consistencies, there is pooling of contrast in the valleculae, which only clears after successive swallows. IMPRESSION: 1. Disordered oral phase of swallowing. 2. Silent penetration of contrast with thin liquids. 3. Pooling of contrast in the valleculae with all consistencies. 4. Speech pathologist assessment issued separately.
--- NOTE | 2018-03-14 11:35 | MRI REPORT ---
EXAMINATION: MR BRAIN WITHOUT CONTRAST CLINICAL INFORMATION: CVA. Dysphagia and dysphonia. COMPARISON: Head CTA 03/13/2018. TECHNIQUE: Multiplanar, multisequence imaging of the brain was performed without intravenous contrast. \H\ \N\FINDINGS: There is no acute infarct, hemorrhage, or mass lesion. There is no extra-axial collection. The ventricles, sulci, and basilar cisterns are normal in size and configuration. There are mild scattered foci of T2 prolongation in the cerebral white matter, a nonspecific finding. There is mild diffuse brain parenchymal volume loss. No evidence of hydrocephalus. The flow voids of the major intracranial arteries appear intact. Bilateral lens replacements are noted. There is mild paranasal sinus mucosal thickening without fluid levels. IMPRESSION: - No acute infarct, mass lesion, intracranial hemorrhage, or evidence of hydrocephalus. - Mild diffuse brain parenchymal volume loss. - Moderate scattered foci of T2 prolongation in the cerebral white matter, a nonspecific finding.
[2018-03-14 14:14] VITALS: BP 100/58
[2018-03-14 22:13] VITALS: BP 98/56
[2018-03-15 06:39] VITALS: BP 118/62
--- NOTE | 2018-03-15 07:07 | PN-Observation ---
Devante Salgado 03/15/18 0706: Observation Note Observation Note _ I have personally examined YUE VALERIO. her disposition is uncertain at this time. Before a determination can be made, she requires continued observation for the following reasons [continued dysphagia and difficulty feeding herself]. Assessment/Plan Medical Assessment: Patient is an 87-year-old female past medical history of hypertension, hyperlipidemia, and gout presents to the ER with difficulty swallowing and weakness. Problem list/plan: Dysphagia speech pathology -MRI showed no evidence of acute stroke or other insult -GI consult placed for consideration of EGD -Will touch base with ENT regarding her outpatient procedures Chronic conditions DVT prophylaxis: Subcu heparin and ALPS Regular diet, pure and nectar consistency Patient is DNR/DNI Problem List: 1. Dysphonia 2. Dysphagia 3. Choking 4. Frequent falls Plan: As above Discharge Plan Stable for Discharge? No Anticipated Discharge (Day): unknown Subjective Follow-up For: Acute onset dysphagia and weakness Complaints: still complains of difficulty swallowing, speaking, moving upper extremities Subjective: She is seen and examined at the bedside. Patient improved from yesterday, able to speak more clearly. Remains emotionally labile. States that we can discuss her care with her relatives will be returning today. Physical therapy suggests short-term rehab, so this discussion needs to be had with family. Review of Systems Constitutional: Reports: no symptoms. Denies: unexplained weight loss. EENTM: Reports: see HPI. Cardiovascular: Reports: no symptoms. Respiratory: Reports: no symptoms. Gastrointestinal: Reports: no symptoms. Genitourinary: Reports: no symptoms. Musculoskeletal: Reports: see HPI. Skin: Reports: no symptoms. Neurological/Psychological: Reports: no symptoms. Hematologic/Endocrine: Reports: no symptoms. Objective Last 24 Hrs of Vital Signs/I&O Vital Signs Date Time Temp Pulse Resp B/P B/P Pulse O2 O2 Flow FiO2 Mean Ox Delivery Rate 03/15 0639 97.5 73 18 118/62 96 Room Air 03/14 2213 98.2 69 18 98/56 95 03/14 1414 97.0 79 18 100/58 95 Room Air Intake & Output 03/15 1600 03/15 0800 03/15 0000 Intake Total 240 Output Total 200 Balance 240 -200 Intake, Oral 240 Number 1 Bowel Movements Output, Urine 200 Physical Exam General Appearance: Alert, Oriented X3, Cooperative, Moderate Distress (UNABLE TO SWALLOW) Skin: No Rashes, No Breakdown Skin Temp/Moisture Exam: Warm/Dry HEENT: Atraumatic, PERRLA, EOMI, Mucous Membr. moist/pink Neck: Supple, No JVD, No thryomegaly Lymphatic: Axillary nl, Cervical nl Cardiovascular: Regular Rate, Normal S1, Normal S2, No Murmurs, Gallops, Rubs Lungs: Clear to Auscultation, Normal Air Movement Abdomen: Soft, No Tenderness, No Hepatospenomegaly, No Masses Neurological: decreased strength all extremities, hoarse voice, slow speech, generalized weakness Extremities: No Clubbing, No Cyanosis, No Edema, Normal Pulses, No Tenderness/ Swelling Vascular: Normal Pulses, Pulses Symmetrical Current Medications: Current Medications Sig/Laisha Start time Last Medication Dose Route Stop Time Status Admin Acetaminophen 1,000 MG Q6P PRN 03/14 0445 AC N/A 1 UNIT IV Enoxaparin Sodium 40 MG DAILY 03/14 0900 AC 03/15 SC 0936 Last 24 Hrs of Labs/Mics: Laboratory Tests 03/15/18 0658: Anion Gap 6, Estimated GFR > 60, BUN/Creatinine Ratio 18.3, CBC w Diff NO MAN DIFF REQ, RBC 3.48 L, MCV 96.3, MCH 31.9 H, MCHC 33.2, RDW 14.9 H, MPV 9.6, Gran % 79.6 H, Lymphocytes % 12.3 L, Monocytes % 5.3, Eosinophils % 2.6, Basophils % 0.2, Absolute Granulocytes 4.1, Absolute Lymphocytes 0.6 L, Absolute Monocytes 0.3, Absolute Eosinophils 0.1, Absolute Basophils 0 Malou Deluca 03/15/18 1152: Attending MD Statement Pt examined & info reviewed Yes Agree w/findings/assess/plan Yes Documenting Attending Malou Deluca MD Objective Last 24 Hrs of Vital Signs/I&O Vital Signs Date Time Temp Pulse Resp B/P B/P Pulse O2 O2 Flow FiO2 Mean Ox Delivery Rate 03/15 0639 97.5 73 18 118/62 96 Room Air 03/14 2213 98.2 69 18 98/56 95 03/14 1414 97.0 79 18 100/58 95 Room Air Intake & Output 03/15 1600 03/15 0800 03/15 0000 Intake Total 240 Output Total 200 Balance 240 -200 Intake, Oral 240 Number 1 Bowel Movements Output, Urine 200 Attending Addendum Attending Brief Note 87F PMH HTN, HLD presenting with hoarseness of voice and dysphagia which is acute to subacute onset. Saw Dr. Umaña of ENT who performed laryngoscopy that was found to be normal. No weight loss. CTA head and neck s/o multiple areas of narrowing with evidence of fibromuscular dysplasia. MRI brain negative for acute or subacute stroke. Vitals stable. Tearful at conversation. Provided emotional support. 1. Oropharyngeal dysphagia subacute to acute onset r/o CVA 2. Hoarseness 3. Right and left ICA stenosis 4. general physical deconditioning 5. Depressive behaviour Patient seen by speech/swallow pathology which recommend pureed diet and nectar thick diet. MBS shows mild abnormality. GI Dr Griggs informed and probably thinks neurological issue. Consider o/p work up. PT cosnutled and recommend STR. Patient can be transferred to inaptient status as she needs more than 2 midnight stay for her acute medical issues.
[2018-03-15 08:16] LABS: ABSOLUTE BASOPHIL COUNT 0 /CUMM (0.0-0.2); ABSOLUTE EOSINOPHIL COUNT 0.1 /CUMM (0.0-0.7); ABSOLUTE GRANULOCYTE CT 4.1 /CUMM (1.4-6.5); ABSOLUTE LYMPH COUNT 0.6 /CUMM (1.2-3.4); ABSOLUTE MONOCYTE COUNT 0.3 /CUMM (0.10-0.60); BASOPHIL % 0.2 % (0.0-2.0); EOSINOPHIL % 2.6 % (0-5); GRANULOCYTE % 79.6 % (42.2-75.2); HEMATOCRIT 33.5 % (37-47); MEAN CORPUSCULAR HGB 31.9 PG (27.0-31.0); MEAN CORPUSCULAR HGB CONC 33.2 G/DL (33.0-37.0); MEAN CORPUSCULAR VOLUME 96.3 FL (81.0-99.0); MEAN PLATELET VOLUME 9.6 FL (7.4-10.4); PLATELET COUNT 172 /CUMM (130-400); RBC DISTRIBUTION WIDTH 14.9 % (11.5-14.5); RED BLOOD CELL CT 3.48 /CUMM (4.20-5.40); WHITE BLOOD CELL COUNT 5.2 /CUMM (4.8-10.8)
[2018-03-15 15:26] VITALS: BP 104/56
--- NOTE | 2018-03-15 19:01 | Cons- Gastroenterology ---
General Information and HPI Consulting Request Date of Consult: 03/15/18 Requested By: Malou Deluca MD Reason for Consult: Dysphagia Allergies/Medications Allergies: Coded Allergies: Penicillins (Intermediate, UNKNOWN 03/22/17) Home Med List: Alendronate Sodium 70 MG TABLET 1 TAB PO QSUN OSTEOPOROSIS (Reported) in the morning, at least 30 minutes before the first food, beverage, or medication of the day Allopurinol 300 MG TABLET 1 TAB PO DAILY UNKNOWN (Reported) Ascorbate Calcium (Vitamin C) 500 MG TABLET 1 TAB PO DAILY SUPPLEMENT ( Reported) Atorvastatin Calcium (Lipitor) 80 MG TABLET 1 TAB PO DAILY CHOLESTEROL ( Reported) Calcium Carbonate/Vitamin D3 (Os-[place] 500+D3 Caplet) 500 MG-200 TABLET 1 TAB PO DAILY SUPLLEMENT (Reported) Cholecalciferol (Vitamin D3) (Vitamin D) 1,000 UNIT TABLET 1 TAB PO DAILY VITAMIN SUPPORT (Reported) Cyanocobalamin (Vitamin B-12) 1,000 MCG TABLET 1 TAB PO DAILY VITAMIN SUPPORT (Reported) Flaxseed Oil (Flax Oil) 1,000 MG CAPSULE 1 CAP PO DAILY SUPPLEMENT (Reported) Lisinopril 10 MG TABLET 1 TAB PO DAILY HEART (Reported) [place]-3 Fatty Acids/Fish Oil (Fish Oil 1,000 MG Capsule) 340 MG-1,000 MG CAPSULE 1 CAP PO DAILY SUPPLEMENT (Reported) Omeprazole 20 MG CAPSULE.DR 1 CAP PO DAILY ACID REFLUX (Reported) Current Medications: Current Medications Sig/Laisha Start time Last Medication Dose Route Stop Time Status Admin Acetaminophen 1,000 MG Q6P PRN 03/14 0445 AC N/A 1 UNIT IV Enoxaparin Sodium 40 MG DAILY 03/14 0900 03/15 [place] 0936 Patient Medication 1 ED ONE ONE 03/15 1645 [facility] ED 03/15 1646 Past History Travel History Traveled to [place] past 21 day No Medical History Blood Transfusion Hx: No Neurological: CVA EENT: NONE Cardiovascular: hypertension, hyperlipidemia Respiratory: NONE Gastrointestinal: GERD Hepatic: NONE Renal: NONE Musculoskeletal: gout, osteoporosis Psychiatric: NONE Endocrine: NONE Blood Disorders: NONE Cancer(s): NONE 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 Home Services at Home: None Primary Language: Norwegian Smoking Status: Never Smoked ETOH Use: denies use Exam & Diagnostic Data Vital Signs and I&O Vital Signs Date Time Temp Pulse Resp B/P B/P Pulse O2 O2 Flow FiO2 Mean Ox Delivery Rate 03/15 1556 Room Air 03/15 1526 98.4 79 18 104/56 96 Room Air 03/15 1504 Room Air 03/15 0639 97.5 73 18 118/62 96 Room Air 03/14 2213 98.2 69 18 98/56 95 Intake & Output 03/15 1600 03/15 0400 03/14 0400 03/13 1600 03/13 0400 Intake Total 360 780 Output Total 200 950 Balance 360 -200 -170 Intake, IV 300 Intake, Oral 360 480 Number 0 1 2 Bowel Movements Output, Urine 200 950 Patient 139 lb 139 lb 139 lb Weight Weight Bed scale Reported by Patient Measurement Method Physical Exam: Dysphonia. No gross oropharyngeal lesion. Neck supple without adenopathy, mass , thyromegaly. Abdomen benign. Results Pertinent Lab Results: Laboratory Tests 03/15 03/14 03/13 0658 0821 2214 Chemistry Sodium (137 - 145 mmol/L) 142 141 Potassium (3.5 - 5.1 mmol/L) 3.6 3.9 Chloride (98 - 107 mmol/L) 107 105 Carbon Dioxide (22 - 30 mmol/L) 30 24 Anion Gap (5 - 16) 6 12 BUN (7 - 17 mg/dL) 11 11 Creatinine (0.5 - 1.0 mg/dL) 0.6 0.6 Estimated GFR (>60 ml/min) > 60 > 60 BUN/Creatinine Ratio (7 - 25 %) 18.3 18.3 Lactic Acid Cancelled Total Bilirubin (0.2 - 1.3 mg/dL) 0.5 Direct Bilirubin (< 0.4 mg/dL) 0.2 AST (14 - 36 U/L) 97 H ALT (9 - 52 U/L) 44 Alkaline Phosphatase (<127 U/L) 59 Total Protein (6.3 - 8.2 g/dL) 6.2 L Albumin (3.5 - 5.0 g/dL) 3.5 Hematology CBC w Diff NO MAN DIFF REQ WBC (4.8 - 10.8 /CUMM) 5.2 RBC (4.20 - 5.40 /CUMM) 3.48 L Hgb (12.0 - 16.0 G/DL) 11.1 L Hct (37 - 47 %) 33.5 L MCV (81.0 - 99.0 FL) 96.3 MCH (27.0 - 31.0 PG) 31.9 H MCHC (33.0 - 37.0 G/DL) 33.2 RDW (11.5 - 14.5 %) 14.9 H Plt Count (130 - 400 /CUMM) 172 MPV (7.4 - 10.4 FL) 9.6 Gran % (42.2 - 75.2 %) 79.6 H Lymphocytes % (20.5 - 51.1 %) 12.3 L Monocytes % (1.7 - 9.3 %) 5.3 Eosinophils % (0 - 5 %) 2.6 Basophils % (0.0 - 2.0 %) 0.2 Absolute Granulocytes (1.4 - 6.5 /CUMM) 4.1 Absolute Lymphocytes (1.2 - 3.4 /CUMM) 0.6 L Absolute Monocytes (0.10 - 0.60 /CUMM) 0.3 Absolute Eosinophils (0.0 - 0.7 /CUMM) 0.1 Absolute Basophils (0.0 - 0.2 /CUMM) 0 03/13 1915 Chemistry Sodium (137 - 145 mmol/L) 140 Potassium (3.5 - 5.1 mmol/L) 5.4 H Chloride (98 - 107 mmol/L) 102 Carbon Dioxide (22 - 30 mmol/L) 26 Anion Gap (5 - 16) 13 BUN (7 - 17 mg/dL) 15 Creatinine (0.5 - 1.0 mg/dL) 0.8 Estimated GFR (>60 ml/min) > 60 BUN/Creatinine Ratio (7 - 25 %) 18.8 Glucose (65 - 99 mg/dL) 67 Lactic Acid (0.7 - 2.1 mmol/L) 1.1 Calcium (8.4 - 10.2 mg/dL) 9.9 Total Bilirubin (0.2 - 1.3 mg/dL) 0.9 AST (14 - 36 U/L) 128 H ALT (9 - 52 U/L) 45 Alkaline Phosphatase (<127 U/L) 52 Total Protein (6.3 - 8.2 g/dL) 7.0 Albumin (3.5 - 5.0 g/dL) 4.0 Globulin (1.9 - 4.2 gm/dL) 3.0 Albumin/Globulin Ratio (1.1 - 2.2 %) 1.3 Coagulation PT (9.4 - 12.5 SEC) 11.7 INR (0.90 - 1.19) 1.07 Hematology CBC w Diff NO MAN DIFF REQ WBC (4.8 - 10.8 /CUMM) 5.1 RBC (4.20 - 5.40 /CUMM) 3.77 L Hgb (12.0 - 16.0 G/DL) 11.8 L Hct (37 - 47 %) 36.0 L MCV (81.0 - 99.0 FL) 95.5 MCH (27.0 - 31.0 PG) 31.3 H MCHC (33.0 - 37.0 G/DL) 32.8 L RDW (11.5 - 14.5 %) 15.0 H Plt Count (130 - 400 /CUMM) 198 MPV (7.4 - 10.4 FL) 10.0 Gran % (42.2 - 75.2 %) 62.7 Lymphocytes % (20.5 - 51.1 %) 27.9 Monocytes % (1.7 - 9.3 %) 7.7 Eosinophils % (0 - 5 %) 0.6 Basophils % (0.0 - 2.0 %) 1.1 Absolute Granulocytes (1.4 - 6.5 /CUMM) 3.2 Absolute Lymphocytes (1.2 - 3.4 /CUMM) 1.4 Absolute Monocytes (0.10 - 0.60 /CUMM) 0.4 Absolute Eosinophils (0.0 - 0.7 /CUMM) 0 Absolute Basophils (0.0 - 0.2 /CUMM) 0.1 Imaging/Other Studies: Modified barium swallow Assessment/Plan Assessment/Recommendations: Acute onset dysphagia with concurrent dysphonia. The dysphagia is oropharyngeal (inability to transfer food, nasal regurgitation, etc.). This is a pharyngeal/ laryngeal processes, perhaps secondary to an acquired neurologic or inflammatory disorder. Indeed the patient has failed a swallowing evaluation/modified barium swallow. This is not an esophageal process. Recommendations * Neurology evaluation * ENT reevaluation * The patient will likely require a gastrostomy feeding tube, at least in the interim, and certainly endoscopy will be performed at that time and confirm absence of a structural esophageal process. Consult Acknowledgment - Thank you for your consult request.
[2018-03-15 20:00] VITALS: BP 112/60
[2018-03-16 06:50] VITALS: BP 100/60
--- NOTE | 2018-03-16 07:05 | PN- Housestaff ---
Devante Salgado 03/16/18 0705: Subjective Follow-up For: difficulty swallowing and weakness Complaints: remains difficult to swallow and talk; weakness of right arm Subjective: Patient seen and examined at the bedside. Patient actively eating breakfast, and being seen by Occupational Therapy. Patient continues to complain of dysphagia, and voice hoarseness and dysphonia is not improved. However, patient remains in good spirits most of the time, vacillating between smiling and tearful, but only for a moment. Review of Systems Constitutional: Reports: weakness. EENTM: Reports: see HPI. Cardiovascular: Reports: no symptoms. Respiratory: Reports: no symptoms. Gastrointestinal: Reports: see HPI. Genitourinary: Reports: no symptoms. Musculoskeletal: Reports: no symptoms. Skin: Reports: no symptoms. Neurological/Psychological: Reports: see HPI (dysphagia possibly neuro). Immunologic/Allergic: Reports: no symptoms. Objective Last 24 Hrs of Vital Signs/I&O Vital Signs Date Time Temp Pulse Resp B/P B/P Pulse O2 O2 Flow FiO2 Mean Ox Delivery Rate 03/16 0650 97.4 70 18 100/60 95 Room Air 03/15 2000 97.7 72 20 112/60 96 Room Air 03/15 1556 Room Air 03/15 1526 98.4 79 18 104/56 96 Room Air 03/15 1504 Room Air Intake & Output 03/16 1600 03/16 0800 03/16 0000 Intake Total 0 Output Total 150 1 Balance -150 -1 Intake, Oral 0 Number 0 Bowel Movements Output, Stool 1 Output, Urine 150 Patient 133 lb Weight Weight Bed scale Measurement Method Physical Exam General Appearance: Alert, Oriented X3, Cooperative, No Acute Distress ( alternating with tearful) Skin: No Rashes, No Breakdown, No Significant Lesion Skin Temp/Moisture Exam: Warm/Dry HEENT: Atraumatic, PERRLA, EOMI, Mucous Membr. moist/pink Neck: Supple, No JVD, No thryomegaly Lymphatic: Axillary nl, Cervical nl Cardiovascular: Regular Rate, Normal S1, Normal S2, No Murmurs, Gallops, Rubs Lungs: Clear to Auscultation, Normal Air Movement Abdomen: Soft, No Tenderness, No Hepatospenomegaly, No Masses Neurological: Normal Tone, Sensation Intact, decreased strength and tone X4ext; dysphagia and difficulty swallowing Extremities: No Clubbing, No Cyanosis, No Edema, Normal Pulses, No Tenderness/ Swelling Vascular: Normal Pulses, Pulses Symmetrical Current Medications: Current Medications Sig/Laisha Start time Last Medication Dose Route Stop Time Status Admin Acetaminophen 1,000 MG Q6P PRN 03/14 0445 AC N/A 1 UNIT IV Enoxaparin Sodium 40 MG DAILY 03/14 0900 AC 03/16 SC 0831 Patient Medication 1 ED ONE ONE 03/15 1645 DC Teaching ED 03/15 1646 Orders ECHO Findings: Ordered; results pending Assessment/Plan Assessment: Patient is an 87-year-old female past medical history of hypertension, hyperlipidemia, and gout presents to the ER with difficulty swallowing and weakness. Problem list/plan: Dysphagia speech pathology -MRI showed no evidence of acute stroke or other insult -Echocardiogram ordered to work up for Ortner's -Neurology consult placed Chronic conditions DVT prophylaxis: Subcu heparin and ALPS Regular diet, pure and nectar consistency Patient is DNR/DNI Problem List: 1. Dysphagia 2. Dysphonia 3. Choking 4. Weakness Pain Ratin Pain Location: none Pain Goal: Remain pain free Pain Plan: none in place Tomorrow's Labs & Rationales: none needed Malou Deluca 03/16/18 1146: Attending MD Review Statement Attending Statement Attending MD Statement: examined this patient, discuss w/resident/PA/EMBEDDED SOFTWARE DEVELOPER, agreed w/resident/PA/EMBEDDED SOFTWARE DEVELOPER, discussed with family, reviewed EMR data (avail), discussed with nursing, discussed with case mgmt, reviewed images, amended to note Attending Assessment/Plan: 87F PMH HTN, HLD presenting with hoarseness of voice and dysphagia which is acute to subacute onset. CTA head and neck s/o multiple areas of narrowing with evidence of fibromuscular dysplasia. MRI brain negative for acute or subacute stroke. Vitals stable. No new complaints. 1. Oropharyngeal dysphagia subacute to acute onset CVA ruled out. 2. Hoarseness 3. Right and left ICA stenosis 4. general physical deconditioning 5. Depressive behaviour Patient seen by speech/swallow pathology which recommend pureed diet and nectar thick diet. Obtain nutrition consult. MBS shows mild abnormality. GI Dr Griggs appreciated and probably thinks neurological issue. Neurology consult. If calorie count is low and PO nutrition is poor then GI would consider PEG in interim and EGD can be performed. Follow nutrition recommendations. PT cosnutled and recommend STR. gi/dvt prophyalxis PrafulTeresa Michele 03/16/18 1628: Assessment/Plan Assessment: Discussed with Neurology Lab. [facility] [phone]. Patient is now scheduled for Monday EMG/NCV. Other antibodies per Neuro note was ordered from lab. If patient stayed inpatient till Monday, can be done as inpatient, or if not, may discharge and given a script for MondayM appointment.
--- NOTE | 2018-03-16 15:22 | PN- Gastroenterology ---
Assessment/Plan GI Assessment/Recommendations: ASSESSMENT: 1. Dysphagia 2. Dysphonia 3. Abnormal Modified Barium Swallow RECOMMENDATIONS: 1. There are no indications for an EGD at this time. 2. Would await neurology consultation. If there is little chance of patient regaining ability to take sufficient by mouth and PEG placement is recommended would reconsult GI. 3. Follow dietary recommendations per speech pathology 4. GI will sign off for now. Please do not hesitate to contact us as needed arises. Subjective Subjective: Patient comfortable. Continued swallowing difficulty as well as dysarthria and dysphagia. Tolerating pureed and nectar thickened diet. A Neurology Consult has been called, however, patient has not seen neurology as yet. Had Modified Barium Swallow. The results are as follows: MPRESSION: 1. Disordered oral phase of swallowing. 2. Silent penetration of contrast with thin liquids. 3. Pooling of contrast in the valleculae with all consistencies. 4. Speech pathologist assessment issued separately. Patient seen by speech, their assessment in brief is as follows: PT WOULD BENEFIT FROM NEURO CONSULT TO EVALUATE GIVEN UNEXPLAINED ORIGIN OF DYSPHAGIA AND DYSARTHRIA. CONTINUE TO OFFER PUREED DIET AND NECTAR THICK LIQUIDS BY TSP WITH SUPERVISION DURING MEALS TO ASSIST WITH FEEDING. ASPIRATION PRECAUTIONS INCLUDE SMALL BITES/SIPS, SLOW RATE, ALLOW SUFFICIENT TIME FOR 3-4 DRY SWALLOWS PER BOLUS, UPRIGHT POSITIONING, PREFERABLY OOB IN CHAIR. PERIODIC CUES FOR THROAT CLEAR/COUGH NEEDED. D/W NURSING, PT, OT. Objective Vital Signs and I&Os Vital Signs Date Time Temp Pulse Resp B/P B/P Pulse O2 O2 Flow FiO2 Mean Ox Delivery Rate 03/16 0650 97.4 70 18 100/60 95 Room Air 03/15 2000 97.7 72 20 112/60 96 Room Air 03/15 1556 Room Air 03/15 1526 98.4 79 18 104/56 96 Room Air Intake & Output 03/16 1600 03/16 0400 03/15 1600 03/15 0400 03/14 1600 03/14 0400 Intake Total 240 360 780 Output Total 100 51 200 950 Balance 140 -51 360 -200 -170 Intake, IV 300 Intake, Oral 240 360 480 Number 3 0 1 2 Bowel Movements Output, Stool 1 Output, Urine 100 50 200 950 Patient 133 lb 139 lb 139 lb 139 lb Weight Weight Bed scale Bed scale Reported by Patient Measurement Method Physical Exam General Appearance: alert, awake, comfortable Neck: supple, full range of motion Respiratory: lungs clear Cardiovascular: regular rate/rhythm Abdomen: normal bowel sounds, soft, non-tender, no organomegaly Results Pertinent Lab Results: Laboratory Tests 03/15 03/14 03/13 0658 0821 2214 Chemistry Sodium (137 - 145 mmol/L) 142 141 Potassium (3.5 - 5.1 mmol/L) 3.6 3.9 Chloride (98 - 107 mmol/L) 107 105 Carbon Dioxide (22 - 30 mmol/L) 30 24 Anion Gap (5 - 16) 6 12 BUN (7 - 17 mg/dL) 11 11 Creatinine (0.5 - 1.0 mg/dL) 0.6 0.6 Estimated GFR (>60 ml/min) > 60 > 60 BUN/Creatinine Ratio (7 - 25 %) 18.3 18.3 Lactic Acid Cancelled Total Bilirubin (0.2 - 1.3 mg/dL) 0.5 Direct Bilirubin (< 0.4 mg/dL) 0.2 AST (14 - 36 U/L) 97 H ALT (9 - 52 U/L) 44 Alkaline Phosphatase (<127 U/L) 59 Total Protein (6.3 - 8.2 g/dL) 6.2 L Albumin (3.5 - 5.0 g/dL) 3.5 Hematology CBC w Diff NO MAN DIFF REQ WBC (4.8 - 10.8 /CUMM) 5.2 RBC (4.20 - 5.40 /CUMM) 3.48 L Hgb (12.0 - 16.0 G/DL) 11.1 L Hct (37 - 47 %) 33.5 L MCV (81.0 - 99.0 FL) 96.3 MCH (27.0 - 31.0 PG) 31.9 H MCHC (33.0 - 37.0 G/DL) 33.2 RDW (11.5 - 14.5 %) 14.9 H Plt Count (130 - 400 /CUMM) 172 MPV (7.4 - 10.4 FL) 9.6 Gran % (42.2 - 75.2 %) 79.6 H Lymphocytes % (20.5 - 51.1 %) 12.3 L Monocytes % (1.7 - 9.3 %) 5.3 Eosinophils % (0 - 5 %) 2.6 Basophils % (0.0 - 2.0 %) 0.2 Absolute Granulocytes (1.4 - 6.5 /CUMM) 4.1 Absolute Lymphocytes (1.2 - 3.4 /CUMM) 0.6 L Absolute Monocytes (0.10 - 0.60 /CUMM) 0.3 Absolute Eosinophils (0.0 - 0.7 /CUMM) 0.1 Absolute Basophils (0.0 - 0.2 /CUMM) 0 03/13 1915 Chemistry Sodium (137 - 145 mmol/L) 140 Potassium (3.5 - 5.1 mmol/L) 5.4 H Chloride (98 - 107 mmol/L) 102 Carbon Dioxide (22 - 30 mmol/L) 26 Anion Gap (5 - 16) 13 BUN (7 - 17 mg/dL) 15 Creatinine (0.5 - 1.0 mg/dL) 0.8 Estimated GFR (>60 ml/min) > 60 BUN/Creatinine Ratio (7 - 25 %) 18.8 Glucose (65 - 99 mg/dL) 67 Lactic Acid (0.7 - 2.1 mmol/L) 1.1 Calcium (8.4 - 10.2 mg/dL) 9.9 Total Bilirubin (0.2 - 1.3 mg/dL) 0.9 AST (14 - 36 U/L) 128 H ALT (9 - 52 U/L) 45 Alkaline Phosphatase (<127 U/L) 52 Total Protein (6.3 - 8.2 g/dL) 7.0 Albumin (3.5 - 5.0 g/dL) 4.0 Globulin (1.9 - 4.2 gm/dL) 3.0 Albumin/Globulin Ratio (1.1 - 2.2 %) 1.3 Coagulation PT (9.4 - 12.5 SEC) 11.7 INR (0.90 - 1.19) 1.07 Hematology CBC w Diff NO MAN DIFF REQ WBC (4.8 - 10.8 /CUMM) 5.1 RBC (4.20 - 5.40 /CUMM) 3.77 L Hgb (12.0 - 16.0 G/DL) 11.8 L Hct (37 - 47 %) 36.0 L MCV (81.0 - 99.0 FL) 95.5 MCH (27.0 - 31.0 PG) 31.3 H MCHC (33.0 - 37.0 G/DL) 32.8 L RDW (11.5 - 14.5 %) 15.0 H Plt Count (130 - 400 /CUMM) 198 MPV (7.4 - 10.4 FL) 10.0 Gran % (42.2 - 75.2 %) 62.7 Lymphocytes % (20.5 - 51.1 %) 27.9 Monocytes % (1.7 - 9.3 %) 7.7 Eosinophils % (0 - 5 %) 0.6 Basophils % (0.0 - 2.0 %) 1.1 Absolute Granulocytes (1.4 - 6.5 /CUMM) 3.2 Absolute Lymphocytes (1.2 - 3.4 /CUMM) 1.4 Absolute Monocytes (0.10 - 0.60 /CUMM) 0.4 Absolute Eosinophils (0.0 - 0.7 /CUMM) 0 Absolute Basophils (0.0 - 0.2 /CUMM) 0.1
--- NOTE | 2018-03-16 15:24 | Cons- Neurology ---
General Information and HPI Consulting Request Date of Consult: 03/16/18 Requested By: Sandrine MURILLO,Malou Reason for Consult: Dysphagia Source of Information: patient, old records Exam Limitations: clinical condition History of Present Illness: This is an 87 year old woman who over the last few months developed GRADUAL deteroiration in swallowing, articulating, and limb weakness resulting in a fall. This fall brought her to medical attention. She had an MRI brain that was relatively normal for age. She then returned recently as she was stuggling to swallow. She could not eat or drink anything without coughing it up. She admits to fsaciculations of her muscles. She admits to falling frequently. She denies any pain. Denies any numbness. Allergies/Medications Allergies: Coded Allergies: Penicillins (Intermediate, UNKNOWN 03/22/17) Home Med List: Alendronate Sodium 70 MG TABLET 1 TAB PO QSUN OSTEOPOROSIS (Reported) in the morning, at least 30 minutes before the first food, beverage, or medication of the day Allopurinol 300 MG TABLET 1 TAB PO DAILY UNKNOWN (Reported) Ascorbate Calcium (Vitamin C) 500 MG TABLET 1 TAB PO DAILY SUPPLEMENT ( Reported) Atorvastatin Calcium (Lipitor) 80 MG TABLET 1 TAB PO DAILY CHOLESTEROL ( Reported) Calcium Carbonate/Vitamin D3 (Os-Lavelle 500+D3 Caplet) 500 MG-200 TABLET 1 TAB PO DAILY SUPLLEMENT (Reported) Cholecalciferol (Vitamin D3) (Vitamin D) 1,000 UNIT TABLET 1 TAB PO DAILY VITAMIN SUPPORT (Reported) Cyanocobalamin (Vitamin B-12) 1,000 MCG TABLET 1 TAB PO DAILY VITAMIN SUPPORT (Reported) Flaxseed Oil (Flax Oil) 1,000 MG CAPSULE 1 CAP PO DAILY SUPPLEMENT (Reported) Lisinopril 10 MG TABLET 1 TAB PO DAILY HEART (Reported) Ray-3 Fatty Acids/Fish Oil (Fish Oil 1,000 MG Capsule) 340 MG-1,000 MG CAPSULE 1 CAP PO DAILY SUPPLEMENT (Reported) Omeprazole 20 MG CAPSULE.DR 1 CAP PO DAILY ACID REFLUX (Reported) Current Medications: Current Medications Sig/Laisha Start time Last Medication Dose Route Stop Time Status Admin Acetaminophen 1,000 MG Q6P PRN 03/14 0445 AC N/A 1 UNIT IV Enoxaparin Sodium 40 MG DAILY 03/14 0900 AC 03/16 [place] 0831 Patient Medication 1 ED ONE ONE 03/15 1645 [facility] ED 03/15 1646 Review of Systems Review of Systems: As per HPI otherwise unrevealing. 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 Home Services at Home: None Primary Language: Polish Smoking Status: Never Smoked ETOH Use: denies use Exam & Diagnostic Data Vital Signs and I&O Vital Signs Date Time Temp Pulse Resp B/P B/P Pulse O2 O2 Flow FiO2 Mean Ox Delivery Rate 03/16 0650 97.4 70 18 100/60 95 Room Air 03/15 2000 97.7 72 20 112/60 96 Room Air 03/15 1556 Room Air 03/15 1526 98.4 79 18 104/56 96 Room Air Intake & Output 03/16 1600 03/16 0800 03/16 0000 Intake Total 240 0 Output Total 150 1 Balance 240 -150 -1 Intake, Oral 240 0 Number 3 0 Bowel Movements Output, Stool 1 Output, Urine 150 Patient 133 lb Weight Weight Bed scale Measurement Method Physical Exam: She is alert and oriented x3. Dense dysarthria, dysphonia without problems in fluency, comprehension or repetition. Can communicate through writing without grammatical mistakes. EOMI, JULIA, no eyelid droop. Face is symmetric. Tongue midline without clear fasciculations. Uvula raises in midline. VF intact. FNF normal. 2/5 right arm extension and 4/5 on left. 4/5 diffuse weakness with weak hip flexors but can hold legs above bed. Some fasciculations noted in right forearm. Cannot walk independently as is unstable. Toes are upgoing bilaterally. No clear atrophic muscles. Last 48 Hours of Lab Results: Laboratory Tests 03/15 0658 Chemistry Sodium (137 - 145 mmol/L) 142 Potassium (3.5 - 5.1 mmol/L) 3.6 Chloride (98 - 107 mmol/L) 107 Carbon Dioxide (22 - 30 mmol/L) 30 Anion Gap (5 - 16) 6 BUN (7 - 17 mg/dL) 11 Creatinine (0.5 - 1.0 mg/dL) 0.6 Estimated GFR (>60 ml/min) > 60 BUN/Creatinine Ratio (7 - 25 %) 18.3 Hematology CBC w Diff NO MAN DIFF REQ WBC (4.8 - 10.8 /CUMM) 5.2 RBC (4.20 - 5.40 /CUMM) 3.48 L Hgb (12.0 - 16.0 G/DL) 11.1 L Hct (37 - 47 %) 33.5 L MCV (81.0 - 99.0 FL) 96.3 MCH (27.0 - 31.0 PG) 31.9 H MCHC (33.0 - 37.0 G/DL) 33.2 RDW (11.5 - 14.5 %) 14.9 H Plt Count (130 - 400 /CUMM) 172 MPV (7.4 - 10.4 FL) 9.6 Gran % (42.2 - 75.2 %) 79.6 H Lymphocytes % (20.5 - 51.1 %) 12.3 L Monocytes % (1.7 - 9.3 %) 5.3 Eosinophils % (0 - 5 %) 2.6 Basophils % (0.0 - 2.0 %) 0.2 Absolute Granulocytes (1.4 - 6.5 /CUMM) 4.1 Absolute Lymphocytes (1.2 - 3.4 /CUMM) 0.6 L Absolute Monocytes (0.10 - 0.60 /CUMM) 0.3 Absolute Eosinophils (0.0 - 0.7 /CUMM) 0.1 Absolute Basophils (0.0 - 0.2 /CUMM) 0 Imaging/Other Studies: MRI brain reviewed directly and is normal for age. Assessment/Plan Assessment: 87 year old with new bulbar symptoms in conjunction with limb weakness. She has fasciculations and upgoing toes. Concern exists for ALS or primary bulbar ALS or primary lateral sclerosis. Other less likely possibilites are Silver-Holman syndrome, or an autoimmune encephalitis. Recommendations: 1. EMG/NCV 2. Send GQ1b antibody 3. Swallowing evaluation NPO till then. 4. Will likely need PEG placement. 5. Conside sending autoimmune encephalitis panel to the [facility] (red top serum). 6. Speech therapy. YC Consult Acknowledgment - Thank you for your consult request.
[2018-03-16 20:37] VITALS: BP 120/60
[2018-03-17 06:20] VITALS: BP 112/54
--- NOTE | 2018-03-17 13:51 | PN- Housestaff ---
See Addendum Subjective Follow-up For: dysphagia and weakness Complaints: continued difficult swallowing and speaking; weakness of right arm Subjective: Patient seen and examined at the bedside. Patient actively eating breakfast, excited to be eating ice cream. Patient in good spirits but continues to complain of dysphagia and voice hoarseness. Plan has been discussed with porter sample case and with family members and is likely that patient will need to go to short-term rehab before returning home. Review of Systems Constitutional: Reports: see HPI, weakness. EENTM: Reports: see HPI. Cardiovascular: Reports: no symptoms. Respiratory: Reports: no symptoms. Gastrointestinal: Reports: see HPI. Genitourinary: Reports: no symptoms. Musculoskeletal: Reports: no symptoms. Skin: Reports: no symptoms. Neurological/Psychological: Reports: see HPI (dysphagia possibly neuro). Hematologic/Endocrine: Reports: no symptoms. Objective Last 24 Hrs of Vital Signs/I&O Vital Signs Date Time Temp Pulse Resp B/P B/P Pulse O2 O2 Flow FiO2 Mean Ox Delivery Rate 03/17 0620 97.9 67 18 112/54 97 Room Air 03/16 2037 97.2 73 18 120/60 93 03/16 1600 Room Air Intake & Output 03/17 1600 03/17 0800 03/17 0000 Intake Total 240 50 Output Total 200 Balance 240 -200 50 Intake, Oral 240 50 Number 0 0 Bowel Movements Output, Urine 200 Patient 132 lb Weight Weight Bed scale Measurement Method Physical Exam General Appearance: Alert, Oriented X3, Cooperative, No Acute Distress ( alternating happy/tearful) Skin: No Rashes, No Breakdown, No Significant Lesion Skin Temp/Moisture Exam: Warm/Dry HEENT: Atraumatic, PERRLA, EOMI, Mucous Membr. moist/pink Neck: No JVD, No thryomegaly Lymphatic: Axillary nl, Cervical nl Cardiovascular: Regular Rate, Normal S1, Normal S2, No Murmurs, Gallops, Rubs Lungs: Clear to Auscultation, Normal Air Movement Abdomen: Normal Bowel Sounds, Soft, No Tenderness, No Hepatospenomegaly, No Masses Neurological: Sensation Intact, decreases strength, tone X4ext, dysphagia and difficulty swallowing; impaired speech Extremities: No Clubbing, No Cyanosis, No Edema, Normal Pulses, No Tenderness/ Swelling Vascular: Normal Pulses, Pulses Symmetrical Current Medications: Current Medications Sig/Laisha Start time Last Medication Dose Route Stop Time Status Admin Acetaminophen 1,000 MG Q6P PRN 03/14 0445 AC N/A 1 UNIT IV Enoxaparin Sodium 40 MG DAILY 03/14 0900 AC 03/17 ME 0820 Assessment/Plan Assessment: Patient is an 87-year-old female past medical history of hypertension, hyperlipidemia, and gout presents to the ER with difficulty swallowing and weakness. Problem list/plan: Dysphagia speech pathology -MRI showed no evidence of acute stroke or other insult -Echocardiogram ordered to work up for Ortner's -not done yet -Neurology consult placed; EMG scheduled for Monday 11 pm -Per neurology, GQ1b antibody and autoimmune encephalitis panel sent -consider PEG tube if difficulty eating continues Chronic conditions DVT prophylaxis: Subcu heparin and ALPS Regular diet, pure and nectar consistency Patient is DNR/DNI Problem List: 1. Dysphagia 2. Dysphonia 3. Choking 4. Weakness Pain Ratin Pain Location: none Pain Goal: Remain pain free Pain Plan: none in place Tomorrow's Labs & Rationales: none needed Discharge Plan Discharge Disposition: STR/NH Stable for Discharge? No Anticipated Discharge (Day): unknown
[2018-03-17 15:38] VITALS: BP 112/54
--- NOTE | 2018-03-17 15:41 | Patient Discharge Instructions ---
Discharge Instructions General Discharge Information Special Instructions: - Please follow up with your primary care physician within 1-2 weeks of discharge. Inform your primary care physician of this admission to [facility]. -Please plan to return to [facility] on March 20, for your neurological testing. - Continue your current medications per discharge instructions. - Please watch for these problems: Fever, Chills, Nausea, Vomiting, Shortness of Breath, Productive Cough, Chest Pain/Discomfort, Abdominal Pain, Active Bleeding or Bloody urine/stool. Diet Continue normal diet: Yes (puree solids and nectar liquid) Activity Full Activity/No Limits: Yes (assist with movement) Acute Coronary Syndrome Inclusion Criteria At DC or during hospital stay patient has or had the following: ACS DIAGNOSIS No Discharge Core Measures Meds if any: Prescribed or Continued at Discharge Meds if any: NOT Prescribed or Continued at Discharge Congestive Heart Failure Inclusion Criteria At DC or during hospital stay patient has or had the following: CHF DIAGNOSIS No Discharge Core Measures Meds if any: Prescribed or Continued at Discharge Meds if any: NOT Prescribed or Continued at Discharge Cerebrovascular accident Inclusion Criteria At DC or during hospital stay patient has or had the following: CVA/TIA Diagnosis No Discharge Core Measures Meds if any: Prescribed or Continued at Discharge Meds if any: NOT Prescribed or Continued at Discharge Venous thromboembolism Inclusion Criteria VTE Diagnosis No VTE Type NONE VTE Confirmed by (Test) NONE Discharge Core Measures - Per Current guidelines, there needs to be overlap - treatment for the first 5 days of Warfarin therapy. - If discharged on Warfarin prior to 5 days of - overlap therapy, the patient will need to be - assessed for post discharge needs including - *Post discharge parental anticoagulation - *Warfarin and/or parental anticoagulation education - *Follow up date to check INR post discharge At least 5 days overlap therapy as Inpatient No Meds if any: Prescribed or Continued at Discharge Note: Overlap Therapy is Warfarin and Anticoagulant Meds if any: NOT Prescribed or Continued at Discharge
[2018-03-17 15:43] VITALS: BP 118/60
--- NOTE | 2018-03-17 16:06 | Discharge Summary ---
Visit Information Visit Dates Admission Date: 03/15/18 Discharge Date: 03/17/18 Hospital Course Course Attending Physician: Malou Deluca MD Primary Care Physician: Jamey Rodriguez MD Consulting Request: 1 Consulting Specialty: Gastroenterology Consulting Physician: Alvino Griggs MD Reason for Consult: Dysphagia Consulting Request: 2 Consulting Specialty: Neurology Consulting Physician: Salazar Solis MD Reason for Consult: dysphagia/dysphonia Hospital Course: 87 yo woman with PMH of hypertension, hyperlipidemia and gout was brought in to the ED by her neighbour as she had not been able to eat or drink anything for the past 2 days. The patient was alone at the time of interview and was making a significant effort to talk. According to her, her problems started at the end of last month when she apparently had a stroke. She developed dysphonia and hoarseness of her voice along with weakness in her legs. Dr. Martin, her PCP was contacted by the PA in the ED and according to him the dysphonia started 6 weeks ago after the patient had a fall. He referred her to , an ENT who did a laryngoscopy on her which showed no acute changes. The patient is tearful during the interview and reports that she has not been able to eat or drink anything for the past 2 days and has been choking if she tries to do so. She lives alone, admits that she has not been eating well and has had multiple falls in the past mainly because of her legs giving way. She denies chest pain, SOB, nausea, vomiting, dizziness, vision problems, any bowel or bladder trouble. On admission, patient was afebrile 98.3, Pulse 98, R 20, BP 170/80, O2 98% RA Labs were largely unremarkable: mild anemia 11.8/36.0; AST 128 After two hospital days, patient had not improved significantly. She is scheduled for outpatient diagnostic test with neurology. Leaving to [facility] and plans to return. Allergies: Coded Allergies: Penicillins (Intermediate, UNKNOWN 03/22/17) Pertinent Lab Results: SERVICE DATE: 03/14/18- EXAM TYPE: MRI - MRI-HEAD W/O ONEIDA IMPRESSION: - No acute infarct, mass lesion, intracranial hemorrhage, or evidence of hydrocephalus. - Mild diffuse brain parenchymal volume loss. - Moderate scattered foci of T2 prolongation in the cerebral white matter, a nonspecific finding. EXAM TYPE: RAD - XRY-MODIFIED BARIUM SWALLOW IMPRESSION: 1. Disordered oral phase of swallowing. 2. Silent penetration of contrast with thin liquids. 3. Pooling of contrast in the valleculae with all consistencies. 4. Speech pathologist assessment issued separately. Disposition Summary Disposition Principal Diagnosis: Dysphagia and dysphonia Additional Diagnosis: Upper extremity weakness, failure to thrive Discharge Disposition: SNF Discharge Instructions General Discharge Information Code Status: Do Not Resucitate/Intubat Patient's Diet: Puree solids and nectar-thick liquids Patient's Activity: Assist out of bed Follow-Up Instructions/Appts: - Please follow up with your primary care physician within 1-2 weeks of discharge. Inform your primary care physician of this admission to [facility]. -Please plan to return to [facility] on Monday, March 20, for your neurological testing. - Continue your current medications per discharge instructions. - Please watch for these problems: Fever, Chills, Nausea, Vomiting, Shortness of Breath, Productive Cough, Chest Pain/Discomfort, Abdominal Pain, Active Bleeding or Bloody urine/stool. Medications at Discharge Discharge Medications: Continue taking these medications: Atorvastatin Calcium (Lipitor) 80 MG TABLET 1 Tablet ORAL DAILY Comments: DOCUMENTED PER CMR DURING PRE-SX INTERVIEW NOT TAKEN IN HOSPITAL Omeprazole (Omeprazole) 20 MG CAPSULE.DR 1 Capsule ORAL DAILY Comments: DOCUMENTED PER CMR DURING PRE-SX INTERVIEW NOT TAKEN IN HOSPITAL Allopurinol (Allopurinol) 300 MG TABLET 1 Tablet ORAL DAILY Comments: DOCUMENTED PER CMR DURING PRE-SX INTERVIEW NOT TAKEN IN HOSPITAL Ascorbate Calcium (Vitamin C) 500 MG TABLET 1 Tablet ORAL DAILY Comments: DOCUMENTED PER CMR DURING PRE-SX INTERVIEW NOT TAKEN IN HOSPITAL Alendronate Sodium (Alendronate Sodium) 70 MG TABLET 1 Tablet ORAL EVERY MONDAY Instructions: in the morning, at least 30 minutes before the first food, beverage, or medication of the day Comments: DOCUMENTED PER CMR DURING PRE-SX INTERVIEW NOT TAKEN IN HOSPITAL Calcium Carbonate/Vitamin D3 (Os-Lavelle 500+D3 Caplet) 500 MG-200 TABLET 1 Tablet ORAL DAILY Comments: NOT TAKEN IN HOSPITAL Lisinopril (Lisinopril) 10 MG TABLET 1 Tablet ORAL DAILY Qty = 90 Comments: NOT TAKEN IN HOSPITAL Flaxseed Oil (Flax Oil) 1,000 MG CAPSULE 1 Capsule ORAL DAILY Comments: NOT TAKEN IN HOSPITAL Paulina-3 Fatty Acids/Fish Oil (Fish Oil 1,000 MG Capsule) 340 MG-1,000 MG CAPSULE 1 Capsule ORAL DAILY Comments: NOT TAKEN IN HOSPITAL Cholecalciferol (Vitamin D3) (Vitamin D) 1,000 UNIT TABLET 1 Tablet ORAL DAILY Comments: NOT TAKEN IN HOSPITAL Cyanocobalamin (Vitamin B-12) 1,000 MCG TABLET 1 Tablet ORAL DAILY Comments: NOT TAKEN IN HOSPITAL Copies To: Michael MURILLO,Jamey Marcelo Attending MD Review Statement Documenting Attending: Sandrine MURILLO,Malou Other Findings: Patient admitted here with new onset dysphagia and hoarseness of vocie. Patient had extensive investogations including CTA head/neck, MRI brain and MBS from speech/swallow pathology. She had evaluation from ENT in past with normal laryngoscopy. GI and neurology consulted. Neurology suggests probably early ALS or Silver fishe syndrome or autoimmune encephalitis. Labs were ordered as requested by neurology. GI recommend likely PEG placement in future if not able to have good nutrition. PTR reommend STR placement. She was discharged in satisfactory condition to rehab facility with outpatient EMV/NCS at [place] on Monday. Follow up Neurology Dr Solis as outpatient in 1 week of discharge and also follow up results of labs ordred.
--- NOTE | 2018-03-17 18:13 | PN- Gastroenterology ---
Assessment/Plan GI Assessment/Recommendations: ASSESSMENT: 1. Dysphagia and dysphonia 2. Abnormal modified barium swallow 3. Underlying neurologic problem causing both #1 and #2. Workup currently in progress per neurology. RECOMMENDATIONS: 1. Await results of neurologic workup 2. Patient is currently tolerating diet and a final recommendations from neurology regarding PEG placement. 3. We will sign off for now. Please do not hesitate to call us should PEG placement be required during this admission. Subjective Subjective: Patient is tolerating nectar thickened liquids. Has not had any evidence of aspiration. She reports his swallowing is going slowly. I appreciate neurology 's input. Believes the differential for patient's dysphonia and dysphagia include primary bulbar ALS, ALS, primary lateral sclerosis, Silver Holman syndrome, or autoimmune encephalitis. They felt that patient may likely need a PEG placement. However at this time patient is swallowing without signs of aspiration. I had met with the family earlier in the day and they were unaware of the neurology had seen patient and I had not seen neurology consult at that time. Objective Vital Signs and I&Os Vital Signs Date Time Temp Pulse Resp B/P B/P Pulse O2 O2 Flow FiO2 Mean Ox Delivery Rate 03/17 1543 97.4 84 20 118/60 98 03/17 1538 97.9 67 18 112/54 03/17 0620 97.9 67 18 112/54 97 Room Air 03/16 2037 97.2 73 18 120/60 93 Intake & Output 03/17 1600 03/17 0400 03/16 1600 03/16 0400 03/15 1600 03/15 0400 Intake Total 240 50 240 360 Output Total 200 100 51 200 Balance 40 50 140 -51 360 -200 Intake, Oral 240 50 240 360 Number 0 0 3 0 1 Bowel Movements Output, Stool 1 Output, Urine 200 100 50 200 Patient 132 lb 133 lb 139 lb Weight Weight Bed scale Bed scale Bed scale Measurement Method Physical Exam General Appearance: well developed/nourished, no apparent distress, comfortable Respiratory: lungs clear Cardiovascular: regular rate/rhythm Abdomen: normal bowel sounds, soft, non-tender Neurologic/Psychiatric: awake, alert Current Medications: Current Medications Sig/Laisha Start time Last Medication Dose Route Stop Time Status Admin Acetaminophen 1,000 MG Q6P PRN 03/14 0445 DCD N/A 1 UNIT IV Enoxaparin Sodium 40 MG DAILY 03/14 0900 DCD 03/17 SC 0820 Results Pertinent Lab Results: Laboratory Tests 03/15 0658 Chemistry Sodium (137 - 145 mmol/L) 142 Potassium (3.5 - 5.1 mmol/L) 3.6 Chloride (98 - 107 mmol/L) 107 Carbon Dioxide (22 - 30 mmol/L) 30 Anion Gap (5 - 16) 6 BUN (7 - 17 mg/dL) 11 Creatinine (0.5 - 1.0 mg/dL) 0.6 Estimated GFR (>60 ml/min) > 60 BUN/Creatinine Ratio (7 - 25 %) 18.3 Hematology CBC w Diff NO MAN DIFF REQ WBC (4.8 - 10.8 /CUMM) 5.2 RBC (4.20 - 5.40 /CUMM) 3.48 L Hgb (12.0 - 16.0 G/DL) 11.1 L Hct (37 - 47 %) 33.5 L MCV (81.0 - 99.0 FL) 96.3 MCH (27.0 - 31.0 PG) 31.9 H MCHC (33.0 - 37.0 G/DL) 33.2 RDW (11.5 - 14.5 %) 14.9 H Plt Count (130 - 400 /CUMM) 172 MPV (7.4 - 10.4 FL) 9.6 Gran % (42.2 - 75.2 %) 79.6 H Lymphocytes % (20.5 - 51.1 %) 12.3 L Monocytes % (1.7 - 9.3 %) 5.3 Eosinophils % (0 - 5 %) 2.6 Basophils % (0.0 - 2.0 %) 0.2 Absolute Granulocytes (1.4 - 6.5 /CUMM) 4.1 Absolute Lymphocytes (1.2 - 3.4 /CUMM) 0.6 L Absolute Monocytes (0.10 - 0.60 /CUMM) 0.3 Absolute Eosinophils (0.0 - 0.7 /CUMM) 0.1 Absolute Basophils (0.0 - 0.2 /CUMM) 0
--- NOTE | 2018-03-17 21:25 | ECHOCARDIOGRAM REPORT ---
YUE VALERIO Age: 87 : 1930 Gender: F Exam Date: 03/17/2018 11:18 Exam Location: [address] [place] [address] A Ht (in): 66 Wt (lb): 133 BSA: 1.68 BP: 100 / 60 Ordering Physician: Devante Salgado MD Referring Physician: Devante Salgado MD Technologist: Tejal Gallego [facility] Room Number: 229-02 Indications: Rhythm: Technical Quality: FINDINGS Left Ventricle Left ventricular cavity size normal. Left ventricular wall thickness mildly increased. No obvious regional wall motion abnormalities. Left ventricular ejection fraction is estimated at > 55 %. Right Ventricle Normal right ventricular size and function. Right Atrium Normal right atrial size. Left Atrium Left atrial size at the upper limits of normal. Mitral Valve No mitral stenosis. Moderate mitral annular calcification. Trace mitral regurgitation. Aortic Valve No aortic stenosis. Trileaflet aortic valve. Mild aortic regurgitation. Tricuspid Valve Structurally normal tricuspid valve. Trace tricuspid regurgitation. Unable to estimate the right ventricular systolic pressure. Pulmonic Valve Pulmonic valve not well visualized. Pericardium No pericardial effusion. Great Vessels Normal size aortic root. CONCLUSIONS Left ventricular cavity size normal. Left ventricular wall thickness mildly increased. No obvious regional wall motion abnormalities. Left ventricular ejection fraction is estimated at > 55 %. Normal right ventricular size and function. Left atrial size at the upper limits of normal. No mitral stenosis. Moderate mitral annular calcification. Unable to estimate the right ventricular systolic pressure. Venu Belle M.D. (Electronically Signed) Final Date: 17 March 2018 21:22 MEASUREMENTS (Male / Female) Normal Values 2D ECHO LV Diastolic Diameter PLAX 3.9 cm 4.2 - 5.9 / 3.9 - 5.3 cm LV Systolic Diameter PLAX 2.3 cm 2.1 - 4.0 cm LV Fractional Shortening PLAX 41.0 % 25 - 46 % LV Ejection Fraction 2D Teich 72.5 % IVS Diastolic Thickness 1.3 cm LVPW Diastolic Thickness 1.2 cm LV Relative Wall Thickness 0.6 LVOT Diameter 1.6 cm Aortic Root Diameter 2.8 cm LA Systolic Diameter LX 2.6 cm 3.0 - 4.0 / 2.7 - 3.8 cm DOPPLER AV Peak Velocity 175.0 cm/s AV Peak Gradient 12.3 mmHg Mitral E Point Velocity 69.6 cm/s Mitral A Point Velocity 129.0 cm/s Mitral E to A Ratio 0.5 MV Deceleration Time 187.0 ms TR Peak Velocity 242.0 cm/s TR Peak Gradient 23.4 mmHg PV Peak Velocity 86.9 cm/s PV Peak Gradient 3.0 mmHg
== END 2018-03-17 17:43 | DRG 392 ==
LOC: ERH 17:35 → 2NA 22:28 → ERHI 22:28 → ENRESERV 23:46 → 2NA 03-14 00:04
PROVIDERS: General Practice; Physician Assistant
DX: R13.12 Dysphagia, oropharyngeal phase (principal); I10 Essential (primary) hypertension; E78.5 Hyperlipidemia, unspecified; M81.0 Age-related osteoporosis without current pathological fracture; K21.9 Gastro-esophageal reflux disease without esophagitis; R49.0 Dysphonia; W19.XXXD Unspecified fall, subsequent encounter; Z91.81 History of falling; I65.23 Occlusion and stenosis of bilateral carotid arteries; R53.1 Weakness; F32.9 Major depressive disorder, single episode, unspecified; Z88.0 Allergy status to penicillin; R62.7 Adult failure to thrive; Z66 Do not resuscitate
CPT/HCPCS: 2NASP; 70551; 36415; 36592; 71046; 74230; 82436; 92610-GN; 93306; 97110-GO; 97116-GO; 97161-GP; 97165-GO; 97530-GO; 97530-GP; G8978-GP; G8979-GP; G8996-GN; G8997-GN; J1650; J7042